=== PATIENT | female | born 1995 | race Caucasian/White ===

== ENCOUNTER 2016-07-28 08:39 | Day surgery (SDC) | payer MEDICAID ==
[2016-07-25 10:46] LABS: HEMATOCRIT 44.1 % (36.0-47.0); HEMOGLOBIN 14.5 g/dL (12.0-15.5); HGB HCT DIFFERENCE -0.6; MEAN CORPUSCULAR HEMOGLOBIN 29.7 pg (27.0-33.4); MEAN CORPUSCULAR HGB CONC 32.9 g/dL (32.0-36.0); MEAN CORPUSCULAR VOLUME 90 fl (80-97); RED BLOOD COUNT 4.88 10^6/uL (3.72-5.28); RED CELL DISTRIBUTION WIDTH 13.9 % (11.5-14.0); WHITE BLOOD COUNT 10.4 10^3/uL (4.0-10.5)
[2016-07-25 10:59] LABS: APPEARANCE,URINE CLEAR; BILIRUBIN,URINE NEGATIVE (NEGATIVE); GLUCOSE, URINE NEGATIVE (NEGATIVE); KETONES,URINE NEGATIVE (NEGATIVE); LEUKOCYTE ESTERASE,URINE NEGATIVE (NEGATIVE); NITRITE,URINE NEGATIVE (NEGATIVE); PROTEIN,URINE NEGATIVE (NEGATIVE); URINE SPECIFIC GRAVITY 1.017; UROBILINOGEN,URINE NEGATIVE mg/dL (<2.0)
[~2016-07-28 08:39] MED LIST: LACTATED RINGERS 1000 ML IV PRN; LIDOCAINE 0.5% INJ-PF (5 MG/ML) 50 ML SDV SUBCUT PRN
[2016-07-28] MEDS ORDERED: ALBUTEROL SULFATE 0.083% NEB 2.5 MG/3 ML AMPUL NEB ONE (09:34)
[2016-07-28] MEDS ORDERED: FAMOTIDINE INJ/PF 20 MG/2 ML SDV IV ONE (09:58)
[2016-07-28] MEDS ORDERED: MIDAZOLAM 2 MG/2 ML INJ ONE ×2 (09:58→10:37)
[2016-07-28] MEDS ORDERED: SCOPOLAMINE HYDROBROMIDE 1.5 MG PATCH.TD72 ONE (10:00)
[2016-07-28] MEDS ORDERED: FENTANYL CITRATE INJ/PF 100 MCG/2 ML AMPUL ONE ×2 (10:36)
[2016-07-28] MEDS ORDERED: LIDOCAINE 2% INJ-PF (100 MG/5 ML) SYRINGE ONE (10:36)
[2016-07-28] MEDS ORDERED: DEXAMETHASONE SOD PHOSPHATE INJ 4 MG/1 ML VIAL ONE (10:37)
[2016-07-28] MEDS ORDERED: ONDANSETRON HCL INJ/PF 4 MG/2 ML SDV ONE (10:37)
[2016-07-28] MEDS ORDERED: PROPOFOL INJ 200 MG/20 ML VIAL IV ONE (10:38)
[2016-07-28] MEDS ORDERED: MORPHINE SULFATE 10 MG/ML INJ ONE (10:38)
[2016-07-28] MEDS ORDERED: PROMETHAZINE HCL INJ 25 MG/1 ML VIAL IV PRN (11:25)
[2016-07-28] MEDS ORDERED: FENTANYL CITRATE INJ/PF 100 MCG/2 ML AMPUL IV PRN (11:25)
[2016-07-28] MEDS ORDERED: DIPHENHYDRAMINE HCL 50 MG/ML VIAL IV PRN (11:25)
[2016-07-28] MEDS ORDERED: MEPERIDINE HCL/PF INJ 25 MG/1 ML DISP.SYRIN IV PRN (11:25)
--- NOTE | 2016-07-28 12:00 | Operative Report ---
Operative Report DATE OF SURGERY: 07/28/16 PREOPERATIVE DIAGNOSIS: Pelvic pain POSTOPERATIVE DIAGNOSIS: Endometriosis OPERATION: Diagnostic laparoscopy with cautery of endometriosis and lysis of adhesions SURGEON: MAYLIN AN SURFACE SUPERVISOR: or staff ANESTHESIA: GA TISSUE REMOVED OR ALTERED: Endometriosis COMPLICATIONS: None ESTIMATED BLOOD LOSS: 50 mL INTRAOPERATIVE FINDINGS: Endometriosis over both ovaries and in the cul-de-sac PROCEDURE: Patient was taken the OR and placed in supine position. Gen. anesthesia was induced. She is placed in the dorsolithotomy position using Grey stirrups. Her abdomen perineum and vagina were prepared and draped in sterile fashion. Her bladder was drained with a red rubber catheter. A sponge stick was placed in the vagina for manipulation of the uterus. An incision was made the umbilicus. Natural umbilical defect was identified and a 5 mm port placed bluntly. Laparoscopy confirmed appropriate placement. The abdomen was insufflated with CO2 gas. View of the pelvis was good. A suprapubic incision was made and a 5 mm port placed under laparoscopic visualization. Pelvis was examined. There were some small anterior adhesions from her previous C- section. Posteriorly there was endometriosis in the cul-de-sac along the uterosacral ligaments and in both ovaries. Ovaries were also tethered to the posterior cul-de-sac. A lateral incision was made. A 5 mm port was placed under laparoscopic visualization. Using the 2 ports the ovaries were elevated up out of the pelvis and the Harmonic scalpel was used to cauterize the endometriosis and release the adhesions from the ovaries to the cul-de-sac. An effort was made to cauterize each individual endometriosis lesion. At the end of the case all instruments removed. The ports were removed under laparoscopic visualization. The umbilical port and scope were removed together. The fascia fascia at the umbilicus was closed with a 2-0 Vicryl stitch and skin at all 3 sites closed with 4-0 undyed Vicryl stitch. She was placed. All instruments removed from the vagina. She is extubated in the OR and taken to recovery in stable condition.
[2016-07-28] MEDS: FENTANYL CITRATE INJ/PF 100 MCG/2 ML AMPUL ONE ×2 (12:09→12:14)
[2016-07-28] MEDS ORDERED: KETOROLAC TROMETHAMINE INJ/PF 30 MG/1 ML SDV IV PRN (12:25)
[2016-07-28] MEDS ORDERED: OXYCODONE-ACETAMINOPHEN 5-325 MG TABLET PO PRN ×2 (12:26→12:27)
[2016-07-28] MEDS ORDERED: IBUPROFEN 800 MG TABLET PO PRN (12:26)
[2016-07-28] MEDS ORDERED: ACETAMINOPHEN 100 ML IV ONE (12:41)
[2016-07-28] MEDS: HYDROMORPHONE HCL INJ/PF 2 MG/ML AMPULE ONE ×2 (12:46→12:56)
[2016-07-28] MEDS ORDERED: KETOROLAC TROMETHAMINE 60 MG/2 ML SDV ONE (12:52)
[2016-07-28] MEDS ORDERED: SUCCINYLCHOLINE CHLORIDE INJ 200 MG/10 ML VIAL ONE (12:52)
[2016-07-28] MEDS ORDERED: GLYCOPYRROLATE INJ 0.4 MG/2 ML VIAL ONE (12:52)
[2016-07-28] MEDS ORDERED: NEOSTIGMINE METHYLSULFATE 10 MG/10 ML VIAL ONE (12:52)
[2016-07-28] MEDS ORDERED: ROCURONIUM BROMIDE INJ 50 MG/5 ML VIAL IV ONE (12:52)
[2016-07-28 15:04] VITALS: BP 107/61
== END 2016-07-28 14:40 | disposition home or self-care (01) ==
LOC: OROUT 08:39
PROVIDERS: ATTEND Obstetrics & Gynecology
PROC: 0U5F4ZZ Destruction of Cul-de-sac, Percutaneous Endoscopic Approach (ICD-10-PCS; 2016-07-28)
PROC: 0U524ZZ Destruction of Bilateral Ovaries, Percutaneous Endoscopic Approach (ICD-10-PCS; principal; 2016-07-28 10:45)
DX: N80.1 Endometriosis of ovary (principal); N80.3 Endometriosis of pelvic peritoneum; M41.9 Scoliosis, unspecified; Z87.891 Personal history of nicotine dependence; Z79.899 Other long term (current) drug therapy; Z88.5 Allergy status to narcotic agent; Z91.040 Latex allergy status
CPT/HCPCS: 36415; 85027; 81005; 81025; 58662; J2250; J3490 ×3; J1100; J1885; J3010; J2001; J1170; J2550; J0330; J2405; J2704; S0028; J0131; 840; J2270

== ENCOUNTER 2016-09-04 11:53 | Emergency (ER) | payer MEDICAID ==
[2016-09-04 12:15] VITALS: BP 122/66
--- NOTE | 2016-09-04 12:18 | ER Document Report ---
ED Medical Screen (RME) - General Stated Complaint: MOUTH/TOOTH PAIN Notes: patient is a 21 year old female p/w tooth pain for 3 days. has had previous pain / infection of this tooth once before. has a dentist but unable to get an appointment. denies fever, chills, odor, abscess, drainage I have greeted and performed a rapid initial assessment of this patient. A comprehensive ED assessment and evaluation of the patient, analysis of test results and completion of the medical decision making process will be conducted by additional ED providers. TRAVEL OUTSIDE OF THE [place] IN LAST 30 DAYS: No - Related Data Allergies/Adverse Reactions: latex [Latex] Allergy (Intermediate, Verified 07/25/16 10:06) Rash, pelvic infection morphine [Morphine] Adverse Reaction (Verified 07/25/16 10:06) Makes pain worse Past Medical History - Social History Family history: Hypertension - Past Medical History Cardiac Medical History: Denies: Hx Coronary Artery Disease, Hx Heart Attack, Hx Hypertension Pulmonary Medical History: Reports: Hx Asthma Denies: Hx Bronchitis, Hx COPD, Hx Pneumonia Neurological Medical History: Reports: Hx Migraine. Denies: Hx Cerebrovascular Accident, Hx Seizures Renal/ Medical History: Reports: Hx Ovarian Cysts, Hx Pelvic Inflammatory Disease GI Medical History: Reports: Hx Gastritis, Hx Gastroesophageal Reflux Disease Musculoskeltal Medical History: Reports Hx Arthritis Skin Medical History: Reports Hx Eczema Psychiatric Medical History: Reports: Hx Anxiety, Hx Depression Past Surgical History: Reports: Hx Section, Hx Cholecystectomy - March 08, 2012, Hx Orthopedic Surgery - Immunizations Immunizations up to date: Yes Hx Diphtheria, Pertussis, Tetanus Vaccination: Yes Physical Exam - Vital signs Vitals: Temp Pulse Resp BP Pulse Ox 98.3 F 83 18 122/66 99 09/04/16 12:14 09/04/16 12:14 09/04/16 12:14 09/04/16 12:14 09/04/16 12:14 Course - Vital Signs Vital signs: Temp Pulse Resp BP Pulse Ox 98.3 F 83 18 122/66 99 09/04/16 12:14 09/04/16 12:14 09/04/16 12:14 09/04/16 12:14 09/04/16 12:14
[2016-09-04] MEDS ORDERED: ACETAMINOPHEN 325 MG TABLET PO ONE (12:19)
== END 2016-09-04 12:50 | disposition left against medical advice (07) ==
LOC: ER 11:53
DX: K08.89 Other specified disorders of teeth and supporting structures (principal); Z91.040 Latex allergy status; Z53.20 Procedure and treatment not carried out because of patient's decision for unspecified reasons
CPT/HCPCS: 99281; J3490

== ENCOUNTER → 2016-10-06 | Outpatient (CLI) | payer MEDICAID ==
[2016-10-06 12:00] LABS: THYROID STIMULATING HORMONE 0.57 uIU/mL (0.47-4.68)
== END ==
LOC: OD 10:22
PROVIDERS: ATTEND Psychiatry & Neurology Psychiatry
DX: F33.2 Major depressive disorder, recurrent severe without psychotic features (principal); Z79.899 Other long term (current) drug therapy
CPT/HCPCS: 36415; 84439; 84443

== ENCOUNTER 2016-10-19 15:05 | Emergency (ER) | payer MEDICAID ==
[2016-10-19] MEDS ORDERED: HYDROCODONE/ACETAMINOPHEN 5-325 MG 6 TAB/DSPK PO PRN (16:03)
--- NOTE | 2016-10-19 16:12 | ER Document Report ---
ED ENT - General Chief Complaint: Redness of Eye Stated Complaint: EYE PAIN Time seen by provider: 16:07 Mode of Arrival: Ambulatory Information source: Patient Notes: 21-year-old female presents to ED for red draining is worse on the left. She is also complaining of jaw pain left lower wisdom tooth area where tooth was pulled about a week and a half ago. The site is bleeding at this moment. She has been smoking. No signs of infection noted at this area. TRAVEL OUTSIDE OF THE [place] IN LAST 30 DAYS: No - HPI Patient complains to provider of: Dental problem, Other - Eye pain and drainage Onset: Other - Dental pain for week is drainage and pain since last night Onset/Duration: Gradual Quality of pain: Other - Left lower jaw throbbing bilateral is kind of burning Severity: Moderate Pain Level: 4 Context: Other - Recent tooth extraction left lower wisdom tooth, significant other diagnosed with pink eye recently. Location of pain: Jaw - Left lower wisdom tooth area, Other - Left eye swollen matted shut this morning right eye starting to drain. Patient is also crying due to pain in her tooth and has been crying and. Associated symptoms: Dental pain - Pain in the left wisdom tooth site where a tooth was pulled about a week and a half ago, Jaw pain, Other - Eyelashes matted , left eye minimally swollen. Similar symptoms previously: Yes Recently seen / treated by doctor: Yes - Related Data Allergies/Adverse Reactions: latex [Latex] Allergy (Intermediate, Verified 10/19/16 15:11) Rash, pelvic infection morphine [Morphine] Adverse Reaction (Verified 10/19/16 15:11) Makes pain worse Past Medical History - General Information source: Patient - Social History Smoking Status: Current Every Day Smoker Cigarette use (# per day): Yes - 7-8 cigarettes a day Chew tobacco use (# tins/day): No Smoking Education Provided: Yes - less than 2 minutes Frequency of alcohol use: None Drug Abuse: None Lives with: Spouse/Significant other Family History: CAD, COPD, CVA, Hyperlipidemia, Hypertension Patient has suicidal ideation: No Patient has homicidal ideation: No - Past Medical History Cardiac Medical History: Reports: None Pulmonary Medical History: Reports: Hx Asthma EENT Medical History: Reports: None Neurological Medical History: Reports: Hx Migraine Endocrine Medical History: Reports: None Renal/ Medical History: Reports: Hx Ovarian Cysts, Hx Pelvic Inflammatory Disease Malignancy Medical History: Reports: None GI Medical History: Reports: Hx Gastritis, Hx Gastroesophageal Reflux Disease Musculoskeltal Medical History: Reports Hx Arthritis Skin Medical History: Reports Hx Eczema Psychiatric Medical History: Reports: Hx Anxiety, Hx Depression Traumatic Medical History: Reports: None Infectious Medical History: Reports: None Past Surgical History: Reports: Hx Section, Hx Cholecystectomy - March 08, 2012, Hx Gynecologic Surgery - Endoscopy for endometriosis, Hx Orthopedic Surgery - Immunizations Immunizations up to date: Yes Hx Diphtheria, Pertussis, Tetanus Vaccination: Yes Review of Systems - Review of Systems Constitutional: No symptoms reported EENT: Eye pain, Eye discharge, Mouth pain Cardiovascular: No symptoms reported Respiratory: No symptoms reported Gastrointestinal: No symptoms reported Genitourinary: No symptoms reported Female Genitourinary: No symptoms reported Musculoskeletal: No symptoms reported Skin: No symptoms reported Hematologic/Lymphatic: No symptoms reported Neurological/Psychological: No symptoms reported -: Yes All other systems reviewed and negative Physical Exam - Vital signs Vitals: Temp Pulse Resp BP Pulse Ox 98.5 F 136 H 17 129/87 H 98 10/19/16 15:15 10/19/16 15:15 10/19/16 15:15 10/19/16 15:15 10/19/16 15:15 Interpretation: Normal - General General appearance: Appears well, Alert - HEENT Head: Normocephalic, Atraumatic Eyes: Normal Conjunctiva: Injected Eyelashes: Matted Pupils: PERRL Fundascopic: Normal Ears: Normal External canal: Normal Tympanic membrane: Normal Sinus: Normal Nasal: Normal Mouth/Lips: Normal Mucous membranes: Normal Teeth diagram: 1 - Some bleeding at the site where a wisdom tooth was removed a week and a half ago. Patient states she has been smoking. No redness or signs of infection. - Respiratory Respiratory status: No respiratory distress Chest status: Nontender Breath sounds: Normal Chest palpation: Normal - Cardiovascular Rhythm: Regular Heart sounds: Normal auscultation Murmur: No - Abdominal Inspection: Normal Distension: No distension Bowel sounds: Normal Tenderness: Nontender Organomegaly: No organomegaly - Back Back: Normal, Nontender - Extremities General upper extremity: Normal inspection, Nontender, Normal color, Normal ROM , Normal temperature General lower extremity: Normal inspection, Nontender, Normal color, Normal ROM , Normal temperature, Normal weight bearing. No: Ginger's sign - Neurological Neuro grossly intact: Yes Cognition: Normal Orientation: AAOx4 [place] Coma Scale Eye Opening: Spontaneous [place] Coma Scale Verbal: Oriented [place] Coma Scale Motor: Obeys Commands Nat[place] Coma Scale Total: 15 Speech: Normal Motor strength normal: LUE, RUE, LLE, RLE Sensory: Normal - Psychological Associated symptoms: Normal affect, Normal mood - Skin Skin Temperature: Warm Skin Moisture: Dry Skin Color: Normal Course - Vital Signs Vital signs: Temp Pulse Resp BP Pulse Ox 97.7 F 93 16 108/56 L 98 10/19/16 16:32 10/19/16 16:32 10/19/16 16:32 10/19/16 16:32 10/19/16 16:32 Discharge - Discharge Clinical Impression: pain at site of previous dental extraction Conjunctivitis Qualifiers: Conjunctivitis type: unspecified Laterality: bilateral Qualified Code(s): H10.9 - Unspecified conjunctivitis Disposition: HOME, SELF-CARE Instructions: Family Physicians / Practices, Dentist Additional Instructions: CONJUNCTIVITIS: You have an infection in your eye, commonly known as "pink eye." Conjunctivitis causes redness, mild discomfort, itching, and mattering on the eyelids. It is very contagious, so you must be careful to wash your hands after touching your face so you don't pass the infection on to others. Conjunctivitis is caused by both viruses and bacteria. It usually responds quickly to treatment with antibiotic drops. These should be placed in the eye as prescribed (usually every three to four hours while you're awake). If you wear contact lenses, don't put them in your eyes until the infection is cleared and you are no longer using the drops (unless your doctor advises you otherwise). Should you develop increasing eye pain, severe swelling, decreased vision, or fail to improve as expected, please return for re-examination. Dry socket, your dental pain is due to the removal of the clot from a previous dental extraction. It is very important that you hold the gauze over the area and apply pressure to reform the clot. If you develop any fevers or swelling in the gums swelling in the jaw you need to follow-up with the oral surgeon who pulled your tooth or with a dentist. EYEDROP USE: Eyedrops are most easily applied by pulling down on the cheek just below the lower eyelid. The lower lid will pop out to form a pouch into which you can drop the medicine. A small brief sting is not unusual, especially if the eye is reddened and irritated already. Use the drops exactly as recommended. You should see the doctor at once if there is a decrease in vision, swelling of the eye, or an increase in discomfort. Oral Narcotic Medication You have been given a prescription for pain control. This medication is a narcotic. It's best taken with food, as nausea can result if taken on an empty stomach. Don't operate machinery or drive within six hours of taking this medication. Do not combine this medicine with alcohol, or with any medication which can cause sedation (such as cold tablets or sleeping pills) unless you get permission from the physician. Narcotics tend to cause constipation. If possible, drink plenty of fluids and eat a diet high in fiber and fruits. Chronic Pain Control Stress, inactivity, and depression make pain more severe regardless of the cause of the pain. Stress and poor physical condition can cause pain such as headaches and backache. Relaxation: Rest in a quiet place with your eyes closed for 20 minutes twice daily. Concentrate on a pleasant image, or simply "feel" your breathing. Clear your mind. Stress management: Deal with your "stressors." Either take action, or eliminate the stressor from your life. Don't let things hang over you. Accept those things you can't change. Nutrition: Eat small, balanced meals -- don't skip, don't overeat. Meals should be high-carbohydrate, low-sugar, low-fat. Exercise: Exercise helps painful conditions and eases stress. Get 30 minutes of moderate exercise, five days a week. Do an activity that does not flare your pain. Precautions: Pain which continues to disrupt daily activities, or which changes in nature, requires a medical evaluation. Pain Clinic referral is available. We do not manage chronic pain in the Emergency Department. We will try to appropriately help you through an acute flare of your chronic painful condition , but for on-going chronic pain that does not improve, you will need to see your private doctor or supervisor painting department. We do not provide repeated medication management of chronic painful conditions. If you wish, we can provide the name of local pain management physicians. Please follow-up with a reconnaissance crewmember in the next 24-48 hours to ensure that sure pink eye has cleared and there are no other infections. FOLLOW-UP CARE: If you have been referred to a physician for follow-up care, call the physician s office for an appointment as you were instructed or within the next two days. If you experience worsening or a significant change in your symptoms, notify the physician immediately or return to the Emergency Department at any time for re-evaluation. Prescriptions: Polymyxin B Sulf/Trimethoprim [Polytrim Eye Drops] 1 drop BTH_EYE Q4HWA #1 bottle Forms: Elevated Blood Pressure, Smoking Cessation Education, Parent Work Note Referrals: BINH TUCKER DO [ACTIVE STAFF] - Follow up tomorrow
[2016-10-19 16:38] VITALS: BP 108/56
[2016-10-19] MEDS ORDERED: POLYMYXIN B SULFATE/TMP OPH SOLN (10 ML/ER DISP) AU SCH (18:00)
== END 2016-10-19 16:38 | disposition home or self-care (01) ==
LOC: ER 15:05
DX: H10.9 Unspecified conjunctivitis (principal); K08.89 Other specified disorders of teeth and supporting structures; H57.12 Ocular pain, left eye; R68.84 Jaw pain; F17.210 Nicotine dependence, cigarettes, uncomplicated
CPT/HCPCS: 99283; J3490

== ENCOUNTER 2016-11-06 13:57 | Emergency (ER) | payer MEDICAID ==
--- NOTE | 2016-11-06 14:52 | ER Document Report ---
ED Medical Screen (RME) - General Chief Complaint: Abdominal Pain Stated Complaint: ABDOMINAL PAIN/URINARY PROBLEMS Notes: 21-year-old with lower abdominal pelvic pain that got really intense 3 days ago. She reports it is similar to the pain she had with endometriosis prior to surgery that was done on 07/28/2016. She also reports burning with urination. LMP was the end of September. I have greeted and performed a rapid initial assessment of this patient. A comprehensive ED assessment and evaluation of the patient, analysis of test results and completion of the medical decision making process will be conducted by additional ED providers. TRAVEL OUTSIDE OF THE [place] IN LAST 30 DAYS: No - Related Data Allergies/Adverse Reactions: latex [Latex] Allergy (Intermediate, Verified 11/06/16 14:26) Rash, pelvic infection morphine [Morphine] Adverse Reaction (Verified 11/06/16 14:26) Makes pain worse Past Medical History - Social History Family history: Hypertension - Past Medical History Cardiac Medical History: Denies: Hx Coronary Artery Disease, Hx Heart Attack, Hx Hypertension Pulmonary Medical History: Reports: Hx Asthma Denies: Hx Bronchitis, Hx COPD, Hx Pneumonia Neurological Medical History: Reports: Hx Migraine. Denies: Hx Cerebrovascular Accident, Hx Seizures Renal/ Medical History: Reports: Hx Ovarian Cysts, Hx Pelvic Inflammatory Disease. Denies: Hx Peritoneal Dialysis GI Medical History: Reports: Hx Gastritis, Hx Gastroesophageal Reflux Disease Musculoskeltal Medical History: Reports Hx Arthritis Skin Medical History: Reports Hx Eczema Psychiatric Medical History: Reports: Hx Anxiety, Hx Depression Past Surgical History: Reports: Hx Section, Hx Cholecystectomy - March 08, 2012, Hx Gynecologic Surgery - Endoscopy for endometriosis, Hx Orthopedic Surgery - Immunizations Immunizations up to date: Yes Hx Diphtheria, Pertussis, Tetanus Vaccination: Yes Physical Exam - Vital signs Vitals: Temp Pulse Resp BP Pulse Ox 99.5 F 91 18 130/67 H 99 11/06/16 14:11/06/16 14:11/06/16 14:11/06/16 14:11/06/16 14:26 Course - Vital Signs Vital signs: Temp Pulse Resp BP Pulse Ox 99.5 F 91 18 130/67 H 99 11/06/16 14:11/06/16 14:11/06/16 14:11/06/16 14:11/06/16 14:26
[2016-11-06 15:30] LABS: ABSOLUTE BASOPHILS # (AUTO) 0.1 10^3/uL (0.0-0.2); ABSOLUTE EOSINOPHILS # (AUTO) 0.2 10^3/uL (0.0-0.6); ABSOLUTE MONOCYTES (AUTO) 0.6 10^3/uL (0.1-1.4); BASOPHILS % (AUTO) 0.6 % (0-2); EOSINOPHILS % (AUTO) 2.4 % (0-6); HEMATOCRIT 43.9 % (36.0-47.0); HEMOGLOBIN 14.9 g/dL (12.0-15.5); HGB HCT DIFFERENCE 0.8; LYMPHOCYTES % (AUTO) 20.5 % (13-45); MEAN CORPUSCULAR HEMOGLOBIN 30.5 pg (27.0-33.4); MEAN CORPUSCULAR VOLUME 90 fl (80-97); MONOCYTES % (AUTO) 6.1 % (3-13); RED BLOOD COUNT 4.89 10^6/uL (3.72-5.28); RED CELL DISTRIBUTION WIDTH 12.9 % (11.5-14.0); SEGMENTED NEUTROPHILS % (AUTO) 70.4 % (42-78); WHITE BLOOD COUNT 9.9 10^3/uL (4.0-10.5)
[2016-11-06 15:39] LABS: APPEARANCE,URINE SLIGHTLY-CLOUDY; BILIRUBIN,URINE NEGATIVE (NEGATIVE); GLUCOSE, URINE NEGATIVE (NEGATIVE); KETONES,URINE NEGATIVE (NEGATIVE); LEUKOCYTE ESTERASE,URINE LARGE (NEGATIVE); NITRITE,URINE NEGATIVE (NEGATIVE); PROTEIN,URINE NEGATIVE (NEGATIVE); URINE SPECIFIC GRAVITY 1.015; UROBILINOGEN,URINE NEGATIVE mg/dL (<2.0)
[2016-11-06 15:53] LABS: ALANINE AMINOTRANSFERASE 21 U/L (9-52); ALBUMIN 4.6 g/dL (3.5-5.0); ALKALINE PHOSPHATASE 61 U/L (38-126); ANION GAP 14 (5-19); ASPARTATE AMINO TRANSFERASE 14 U/L (14-36); BILIRUBIN,DIRECT 0.3 mg/dL (0.0-0.4); BILIRUBIN,TOTAL 0.6 mg/dL (0.2-1.3); BLOOD UREA NITROGEN 6 mg/dL (7-20); CALCIUM 9.6 mg/dL (8.4-10.2); CARBON DIOXIDE 26 mmol/L (22-30); CHLORIDE 105 mmol/L (98-107); CREATININE RESULT 0.76 mg/dL (0.52-1.25); GLUCOSE 75 mg/dL (75-110); POTASSIUM 3.8 mmol/L (3.6-5.0); SODIUM 144.8 mmol/L (137-145)
[2016-11-06] MEDS ORDERED: ONDANSETRON HCL INJ/PF 4 MG/2 ML SDV IV ONE (16:59)
[2016-11-06] MEDS ORDERED: NORMAL SALINE 1000 ML 1,000 ML IV PRN (16:59)
[2016-11-06] MEDS ORDERED: HYDROMORPHONE HCL INJ/PF 2 MG/ML AMPULE IV ONE ×3 (17:01→21:06)
--- NOTE | 2016-11-06 17:08 | ER Document Report ---
ED GI/ - General Chief Complaint: Abdominal Pain Stated Complaint: ABDOMINAL PAIN/URINARY PROBLEMS Time seen by provider: 17:06 Mode of Arrival: Ambulatory Information source: Patient Notes: This is a 21-year-old female with a long history of intermittent abdominal pain that presents with an exacerbation of diffuse abdominal pain. The patient did have a laparoscopy for scar tissue and endometriosis in July of this year ( Dr. Lux), she has had a workup with Dr. La including EGD/colonoscopy and ultimately a cholecystectomy. She presents in significant distress with abdominal pain for the past several days. She does admit to a clear discharge. No known exposure to STD. She states is no possibility of her being (her partner is a female). TRAVEL OUTSIDE OF THE [place] IN LAST 30 DAYS: No - HPI Patient complains to provider of: Abdominal pain Onset: Last week Timing/Duration: Gradual Quality of pain: Dull Severity at maximum: Moderate Location: Other - Diffuse Vaginal bleeding (Compared to normal period): None Sexual history: Active Associated symptoms: denies: Lightheaded, Loss of appetite, Syncope Exacerbated by: Denies Relieved by: Denies Similar symptoms previously: Yes Recently seen / treated by doctor: No - Related Data Allergies/Adverse Reactions: latex [Latex] Allergy (Intermediate, Verified 11/06/16 14:26) Rash, pelvic infection morphine [Morphine] Adverse Reaction (Verified 11/06/16 14:26) Makes pain worse Past Medical History - General Information source: Patient - Social History Smoking Status: Current Every Day Smoker Chew tobacco use (# tins/day): - 15 Frequency of alcohol use: None Drug Abuse: None Lives with: Spouse/Significant other Family History: CAD, COPD, CVA, Hyperlipidemia, Hypertension Patient has suicidal ideation: No Patient has homicidal ideation: No - Past Medical History Cardiac Medical History: Denies: Hx Coronary Artery Disease, Hx Heart Attack, Hx Hypertension Pulmonary Medical History: Reports: Hx Asthma Denies: Hx Bronchitis, Hx COPD, Hx Pneumonia Neurological Medical History: Reports: Hx Migraine. Denies: Hx Cerebrovascular Accident, Hx Seizures Renal/ Medical History: Reports: Hx Ovarian Cysts, Hx Pelvic Inflammatory Disease. Denies: Hx Peritoneal Dialysis GI Medical History: Reports: Hx Gastritis, Hx Gastroesophageal Reflux Disease Musculoskeltal Medical History: Reports Hx Arthritis Skin Medical History: Reports Hx Eczema Psychiatric Medical History: Reports: Hx Anxiety, Hx Depression Past Surgical History: Reports: Hx Section, Hx Cholecystectomy - March 08, 2012, Hx Gynecologic Surgery - Endoscopy for endometriosis, Hx Orthopedic Surgery - Immunizations Immunizations up to date: Yes Hx Diphtheria, Pertussis, Tetanus Vaccination: Yes Review of Systems - Review of Systems Constitutional: denies: Chills, Fever EENT: No symptoms reported Cardiovascular: No symptoms reported Respiratory: No symptoms reported Gastrointestinal: See HPI Genitourinary: No symptoms reported Female Genitourinary: No symptoms reported Musculoskeletal: No symptoms reported Skin: No symptoms reported Hematologic/Lymphatic: No symptoms reported Neurological/Psychological: No symptoms reported Physical Exam - Vital signs Vitals: Temp Pulse Resp BP Pulse Ox 99.5 F 91 18 130/67 H 99 11/06/16 14:26 11/06/16 14:26 11/06/16 14:26 11/06/16 14:11/06/16 14:26 Notes: Physical exam: GENERAL: 21-year-old female, alert and oriented 3, appears in distress. HEAD: Atraumatic, normocephalic. EYES: Pupils equal round and reactive to light, extraocular movements intact, sclera anicteric, conjunctiva are normal. ENT: TMs normal, nares patent, oropharynx clear without exudates. Moist mucous membranes. NECK: Normal range of motion, supple without lymphadenopathy or JVD. LUNGS: Breath sounds clear to auscultation bilaterally and equal. No wheezes rales or rhonchi. HEART: Regular rate and rhythm without murmurs, rubs or gallops. ABDOMEN: Soft, hyperactive bowel sounds. Diffusely tender. No rebound. EXTREMITIES: Normal range of motion, no pitting or edema. No clubbing or cyanosis. NEUROLOGICAL: Cranial nerves II through XII grossly intact. Normal speech, normal gait. PSYCH: Normal mood, normal affect. SKIN: Warm, Dry, normal turgor, no rashes or lesions noted. Course - Re-evaluation Re-evalutation: 11/06/16 21:08 Note: The patient gives a long history of abdominal pain that I think is really related to irritable bowel syndrome. She has had an EGD and colonoscopy and presumably been evaluated for inflammatory bowel. She does not have any history of blood in the stool. She has had her gallbladder out and she has had a laparoscopy for endometriosis. She presented with an exacerbation of pain that she's had in the past. There is no evidence of obstruction or an acute surgical abdomen at this time. She did note that she had an increased vaginal discharge and she is positive for gonorrhea. I have treated her for that, but again, I do not believe this is the source of her pain. I've advised her to take probiotics. I will send her home with some short-term pain medicine and antiemetics. She will follow-up with Dr. Lux (she is going to call in the morning). - Vital Signs Vital signs: Temp Pulse Resp BP Pulse Ox 99.5 F 91 18 130/67 H 99 11/06/16 14:26 11/06/16 14:26 11/06/16 14:26 11/06/16 14:26 11/06/16 14:26 - Laboratory Result Diagrams: 11/06/16 15:08 11/06/16 15:08 Laboratory results interpreted by me: 11/06/16 11/06/16 15:08 15:08 BUN 6 L Ur Leukocyte Esterase LARGE H - Diagnostic Test Radiology reviewed: Image reviewed, Reports reviewed - CT the abdomen shows no acute abdominal surgical issues Discharge - Discharge Clinical Impression: Cervicitis, abdominal pain Condition: Stable Disposition: HOME, SELF-CARE Instructions: Gonorrhea ([facility]), Cervicitis ([facility]), Irritable Bowel Syndrome ([facility]) Additional Instructions: Recommendations: Follow-up with the [facility] clinic (Dr. Lux): Call the office tomorrow morning. Take the pain medicine is required. Take the nausea medicine as needed. As we discussed, and like you to start taking probiotics to see if this helps her abdominal complaints. Ultimately, you may need to be evaluated again by GI. Prescriptions: Oxycodone HCl/Acetaminophen [Percocet 5-325 mg Tablet] 1 - 2 tab PO ASDIR PRN # 15 tablet PRN Reason: Promethazine HCl [Phenergan 25 mg Tablet] 25 mg PO Q6H PRN #15 tablet PRN Reason:
[2016-11-06 19:38] LABS: CHLAM PCR NOT DETECTED (NOT DETECT)
[2016-11-06] MEDS ORDERED: CEFTRIAXONE INJ 250 MG VIAL IM ONE (20:29)
[2016-11-06] MEDS ORDERED: AZITHROMYCIN 1 GM SUSP PACKET PO ONE (20:29)
[2016-11-06] MEDS ORDERED: PROMETHAZINE HCL 25 MG TABLET PO ONE (21:05)
[2016-11-06] MEDS ORDERED: LIDOCAINE 1% INJ-PF (10 MG/ML) 30 ML SDV ONE (21:22)
[2016-11-06 21:36] VITALS: BP 121/65
== END 2016-11-06 21:35 | disposition home or self-care (01) ==
LOC: ER 13:57
DX: R10.84 Generalized abdominal pain (principal); A54.03 Gonococcal cervicitis, unspecified; J45.909 Unspecified asthma, uncomplicated; F17.200 Nicotine dependence, unspecified, uncomplicated; Z90.49 Acquired absence of other specified parts of digestive tract; Z91.040 Latex allergy status; Z87.42 Personal history of other diseases of the female genital tract
CPT/HCPCS: 96376; 99284; 96372; 96361; 96374; 96375; 36415; 87210; 84703; 85025; 80053; 81001; 87491; 87591; 74177; J3490 ×2; Q0144; J1170; J2405; J7030; J0696

== ENCOUNTER 2016-12-09 14:14 | Emergency (ER) | payer MEDICAID ==
[2016-12-09] MEDS ORDERED: ONDANSETRON 4 MG TAB.RAPDIS PO ONE (15:23)
--- NOTE | 2016-12-09 16:05 | RADIOLOGY REPORT (SQ) ---
EXAM DESCRIPTION: CT HEAD WITHOUT COMPLETED DATE/TIME: 12/09/2016 3:50 pm REASON FOR STUDY: hit head, near syncope COMPARISON: July 2010 TECHNIQUE: Axial images acquired through the brain without intravenous contrast. Images reviewed wi th bone, brain and subdural windows. Images stored on PACS. All CT scanners at this facility use dose modulation, iterative reconstruction, and/or weight based d osing when appropriate to reduce radiation dose to as low as reasonably achievable (ALARA). [facility]: Dose Right [facility]: CareDose [facility]: Dose Right [facility]: Teradose 4D [facility]: [place] J&B RADIATION DOSE: 64.61 mGy. LIMITATIONS: None. FINDINGS: VENTRICLES: Normal size and contour. CEREBRUM: No masses. No hemorrhage. No midline shift. Normal galvin/white matter differentiation. N o evidence for acute infarction. CEREBELLUM: No masses. No hemorrhage. No alteration of density. No evidence for acute infarction. EXTRAAXIAL SPACES: No fluid collections. No masses. ORBITS AND GLOBE: No intra- or extraconal masses. Normal contour of globe without masses. CALVARIUM: No fracture. PARANASAL SINUSES: Mucosal thickening is identified in the right maxillary antra. SOFT TISSUES: No mass or hematoma. OTHER: No other significant finding. IMPRESSION: NORMAL BRAIN CT WITHOUT CONTRAST. TECHNICAL DOCUMENTATION: JOB ID: [id number] Quality ID # [id number]: Final reports with documentation of one or more dose reduction techniques (e.g., Au tomated exposure control, adjustment of the mA and/or kV according to patient size, use of iterative reconstruction technique) 2010 [employer]- All Rights Reserved
[2016-12-09] MEDS ORDERED: ONDANSETRON ODT 4 MG TAB (6 TAB/DSPK) PO PRN (16:31)
--- NOTE | 2016-12-09 16:33 | ER Document Report ---
ED Head/Face/Scalp Injury - General TRAVEL OUTSIDE OF THE [place] IN LAST 30 DAYS: Yes - HPI Patient complains to provider of: Injury, Pain Injury to: Head Occurred: Other - Refer to HPI notes - General Chief Complaint: Head Injury Stated Complaint: HEAD INJURY Time Seen by Provider: 12/09/16 15:16 Notes: Patient is a 21 year old female presenting to the Emergency department for head pain related to a head injury. Patient "slammed" the back of her head into a door frame yesterday. Patient complains of headache, blurred vision, nausea and vomiting x5. Patient states she has lots of pain behind her eyes bilaterally. Patient hit the occipital part of her head on the door frame. Patient was unsteady and dizzy after hitting her head and her friend "caught" her right after it happened. Patient states her dizziness is still present today. Patient denies any LOC, numbness/tingling, weakness, shortness of breath, or chest pain. (BILLY SILVA) - Related Data Allergies/Adverse Reactions: latex [Latex] Allergy (Intermediate, Verified 12/09/16 15:13) Rash, pelvic infection morphine [Morphine] Adverse Reaction (Verified 12/09/16 15:13) Makes pain worse Past Medical History - General Information source: Patient - Social History Smoking Status: Never Smoker Cigarette use (# per day): No Chew tobacco use (# tins/day): No Frequency of alcohol use: None Drug Abuse: None Family History: CAD, COPD, CVA, Hyperlipidemia, Hypertension Patient has suicidal ideation: No Patient has homicidal ideation: No Pulmonary Medical History: Reports: Hx Asthma Neurological Medical History: Reports: Hx Migraine Renal/ Medical History: Reports: Hx Ovarian Cysts, Hx Pelvic Inflammatory Disease GI Medical History: Reports: Hx Gastritis, Hx Gastroesophageal Reflux Disease Musculoskeltal Medical History: Reports Hx Arthritis Skin Medical History: Reports Hx Eczema Psychiatric Medical History: Reports: Hx Anxiety, Hx Depression Past Surgical History: Reports: Hx Section, Hx Cholecystectomy - March 08, 2012, Hx Gynecologic Surgery - Endoscopy for endometriosis, Hx Orthopedic Surgery - Immunizations Immunizations up to date: Yes Hx Diphtheria, Pertussis, Tetanus Vaccination: Yes Review of Systems - Review of Systems Constitutional: No symptoms reported EENT: See HPI, Blurred vision Cardiovascular: See HPI, Dizziness Respiratory: No symptoms reported Gastrointestinal: See HPI, Nausea, Vomiting Genitourinary: No symptoms reported Female Genitourinary: No symptoms reported Musculoskeletal: No symptoms reported Skin: No symptoms reported Hematologic/Lymphatic: No symptoms reported Neurological/Psychological: See HPI, Headaches -: Yes All other systems reviewed and negative Physical Exam - Vital signs Vitals: Temp Pulse Resp BP Pulse Ox 98.7 F 91 18 116/66 99 12/09/16 14:53 12/09/16 14:53 12/09/16 14:53 12/09/16 14:53 12/09/16 14:53 - Notes Notes: GENERAL: Alert, interacts well. No acute distress. HEAD: Normocephalic, atraumatic. EYES: Pupils equal, round, and reactive to light. Extraocular movements intact. ENT: Oral mucosa moist, tongue midline. [Nares patent, no nasal septal hematoma , TM's intacts.] NECK: Full range of motion. Supple. Trachea midline. LUNGS: Clear to auscultation bilaterally, no wheezes, rales, or rhonchi. No respiratory distress. HEART: Regular rate and rhythm. No murmurs, gallops, or rubs. ABDOMEN: Soft, non-tender. Non-distended. Bowel sounds present in all 4 quadrants. EXTREMITIES: Moves all 4 extremities spontaneously. No edema, radial and dorsalis pedis pulses 2/4 bilaterally. No cyanosis. NEUROLOGICAL: Alert and oriented x3. Normal speech. [cranial nerves II through XII grossly intact]. Biceps and patellar DTRs 2+ bilaterally. PSYCH: Normal affect, normal mood. SKIN: Warm, dry, normal turgor. No rashes or lesions noted. (BILLY SILVA) Course - Re-evaluation Re-evalutation: 12/09/16 16:34 CT scan of the head negative for acute bleeding. Examination consistent with concussion. Given concussion precautions. Discharged under care of girlfriend. (AVINASH SANTIAGO) - Vital Signs Vital signs: Temp Pulse Resp BP Pulse Ox 98.3 F 103 H 18 120/77 99 12/09/16 16:32 12/09/16 16:32 12/09/16 14:53 12/09/16 16:32 12/09/16 16:32 Discharge - Discharge Clinical Impression: Concussion Qualifiers: Encounter type: initial encounter Loss of consciousness presence/duration: without LOC Qualified Code(s): S06.0X0A - Concussion without loss of consciousness, initial encounter Condition: Stable Disposition: HOME, SELF-CARE Instructions: Post-Concussion Syndrome ([facility]) Prescriptions: Ondansetron [Zofran Odt 4 mg Tablet] 1 - 2 tab PO Q4H PRN #15 tab.rapdis PRN Reason: For Nausea/Vomiting Forms: Return to Work Scribe Attestation: 12/09/16 20:51 I personally performed the services described in the documentation, reviewed and edited the documentation which was dictated to the scribe in my presence, and it accurately records my words and actions. (AVINASH SANTIAGO) Scribe Documentation - Scribe Written by Kim:: Kim Alvarado, 12/09/16 17:30 acting as scribe for :: Pily
[2016-12-09 16:59] VITALS: BP 120/77
== END 2016-12-09 16:50 | disposition home or self-care (01) ==
LOC: ER 14:14
DX: S06.0X0A Concussion without loss of consciousness, initial encounter (principal); W22.09XA Striking against other stationary object, initial encounter; R51 Headache; H53.8 Other visual disturbances; R11.2 Nausea with vomiting, unspecified; R42 Dizziness and giddiness; Z91.040 Latex allergy status; J45.909 Unspecified asthma, uncomplicated
CPT/HCPCS: 99283; 70450; S0119

== ENCOUNTER 2016-12-26 22:00 | Emergency (ER) | payer MEDICAID ==
[2016-12-26 22:43] VITALS: BP 101/50
== END 2016-12-27 00:08 | disposition left against medical advice (07) ==
LOC: ER 22:00
DX: Z53.9 Procedure and treatment not carried out, unspecified reason (principal); R51 Headache

== ENCOUNTER → 2017-01-26 | Outpatient (CLI) | payer MEDICAID ==
[2017-01-26 12:44] LABS: HEMATOCRIT 45.7 % (36.0-47.0); HEMOGLOBIN 14.9 g/dL (12.0-15.5); MEAN CORPUSCULAR HGB CONC 32.6 g/dL (32.0-36.0); MEAN CORPUSCULAR VOLUME 92 fl (80-97); RED BLOOD COUNT 4.95 10^6/uL (3.72-5.28); RED CELL DISTRIBUTION WIDTH 13.2 % (11.5-14.0); WHITE BLOOD COUNT 8.1 10^3/uL (4.0-10.5)
[2017-01-26 13:12] LABS: ALANINE AMINOTRANSFERASE 28 U/L (9-52); ALKALINE PHOSPHATASE 63 U/L (38-126); AMYLASE 59 U/L (30-110); ANION GAP 15 (5-19); ASPARTATE AMINO TRANSFERASE 15 U/L (14-36); BILIRUBIN,DIRECT 0.3 mg/dL (0.0-0.4); BILIRUBIN,TOTAL 1.1 mg/dL (0.2-1.3); BLOOD UREA NITROGEN 13 mg/dL (7-20); CALCIUM 9.7 mg/dL (8.4-10.2); CARBON DIOXIDE 20 mmol/L (22-30); CHLORIDE 107 mmol/L (98-107); CREATININE RESULT 0.74 mg/dL (0.52-1.25); GLUCOSE 73 mg/dL (75-110); LIPASE 29.3 U/L (23-300); POTASSIUM 4.1 mmol/L (3.6-5.0); SODIUM 142.3 mmol/L (137-145)
[2017-01-26 13:38] LABS: THYROID STIMULATING HORMONE 0.75 uIU/mL (0.47-4.68)
== END ==
LOC: OD 12:01
PROVIDERS: ATTEND Physician Assistant Surgical
DX: R11.2 Nausea with vomiting, unspecified (principal); R63.0 Anorexia; R68.81 Early satiety; R19.4 Change in bowel habit; R63.4 Abnormal weight loss
CPT/HCPCS: 36415; 80053; 82150; 83690; 84439; 84443; 85027

== ENCOUNTER 2017-03-19 19:44 | Emergency (ER) | payer MEDICAID ==
[2017-03-19] MEDS ORDERED: PENICILLIN V POTASSIUM 250 MG TABLET PO ONE (20:41)
--- NOTE | 2017-03-19 20:42 | ER Document Report ---
ED Oral Problem - General Mode of Arrival: Ambulatory Information source: Patient TRAVEL OUTSIDE OF THE [place] IN LAST 30 DAYS: No - General Chief Complaint: Toothache Stated Complaint: TOOTH PAIN AND VOMITING Time Seen by Provider: 03/19/17 20:25 Notes: Patient is a 21-year-old female who presents to the emergency department today with complaints of dental pain. Patient states she has several broken teeth. Patient states "she cannot find a dentist to pull all her teeth because of her age". Patient has frequent tooth infections. Patient states she has found a dentist but she cannot get in for two weeks. (CATY FULTON) - Related Data Allergies/Adverse Reactions: latex [Latex] Allergy (Intermediate, Verified 12/09/16 15:13) Rash, pelvic infection morphine [Morphine] Adverse Reaction (Verified 12/09/16 15:13) Makes pain worse Past Medical History - General Information source: Patient, [facility] Records - Social History Smoking Status: Current Every Day Smoker Cigarette use (# per day): Yes Frequency of alcohol use: None Drug Abuse: None Lives with: Family Family History: CAD, COPD, CVA, Hyperlipidemia, Hypertension Patient has suicidal ideation: No Patient has homicidal ideation: No Pulmonary Medical History: Reports: Hx Asthma Neurological Medical History: Reports: Hx Migraine Renal/ Medical History: Reports: Hx Ovarian Cysts, Hx Pelvic Inflammatory Disease GI Medical History: Reports: Hx Gastritis, Hx Gastroesophageal Reflux Disease Musculoskeltal Medical History: Reports Hx Arthritis Skin Medical History: Reports Hx Eczema Psychiatric Medical History: Reports: Hx Anxiety, Hx Depression Past Surgical History: Reports: Hx Section, Hx Cholecystectomy - March 08, 2012, Hx Gynecologic Surgery - Endoscopy for endometriosis, Hx Orthopedic Surgery - Immunizations Immunizations up to date: Yes Hx Diphtheria, Pertussis, Tetanus Vaccination: Yes Review of Systems - Review of Systems Constitutional: No symptoms reported EENT: See HPI, Mouth pain, Dental problem Cardiovascular: No symptoms reported Respiratory: No symptoms reported Gastrointestinal: No symptoms reported Genitourinary: No symptoms reported Female Genitourinary: No symptoms reported Musculoskeletal: No symptoms reported Skin: No symptoms reported Hematologic/Lymphatic: No symptoms reported Neurological/Psychological: No symptoms reported -: Yes All other systems reviewed and negative Physical Exam - Vital signs Vitals: Temp Pulse Resp BP Pulse Ox 99.6 F 93 17 127/75 H 100 03/19/17 19:55 03/19/17 19:55 03/19/17 19:55 03/19/17 19:55 03/19/17 19:55 - Notes Notes: Physical Exam: General: Alert, appears well. HEENT: Normocephalic. Atraumatic. PERRLA. Extraocular movements intact. Oropharynx clear. Generalized dental decay. Neck: Supple. Respiratory: No respiratory distress. Abdominal: Normal Inspection. No distension. Extremities: Moves all four extremities. Neurological: Cranial nerves II-XII grossly intact bilaterally. Normal cognition. AAOx4. Normal speech. Psychological: Normal affect. Normal Mood. Skin: Warm. Dry. Normal color. (CATY FULTON) Course - Re-evaluation Re-evalutation: 03/19/17 20:43 Patient presents emerged department odontalgia. She has been seen in the emergency department on numerous visits for multiple dental decay issues as well multiple chronic pain issues said that 1 of her teeth are bothering her and the dentist "will not take all of her teeth out". Says she can get an appointment until 2 weeks from now. On examination well-appearing nontoxic afebrile no facial swelling she has got some dental decay throughout but no associated periapical abscess swelling trismus stridor or drooling trachea is midline neck is supple lungs are clear she can be discharged on [facility] given instruction list on dentist in the area to call around to get a sooner appointment and discussed reasons for ED return sooner (AIDEN LADD) - Vital Signs Vital signs: Temp Pulse Resp BP Pulse Ox 99.1 F 93 18 120/74 100 03/19/17 21:14 03/19/17 21:14 03/19/17 21:14 03/19/17 21:14 03/19/17 21:14 Discharge - Discharge Clinical Impression: Dental caries Condition: Stable Disposition: HOME, SELF-CARE Instructions: Toothache ([facility]) Additional Instructions: Toothache Your pain is due to dental decay. The tooth must be repaired in order for you to feel better. You will, therefore, be referred to a dentist. Severe swelling or drainage around a tooth usually means a deep dental abscess. This also requires evaluation and treatment by the dentist, but antibiotics may be prescribed while awaiting dental treatment. You should be rechecked immediately if you develop major swelling of the face, increasing pain, a lump in the jaw or gums, headache, or fever. Prescriptions: Penicillin V Potassium [Penicillin Vk 250 mg Tablet] 250 mg PO Q6 #40 tablet Scribe Attestation: 03/19/17 20:43 I personally performed the services described in the documentation reviewed the documentation recorded by my scribe in my presence and it accurately and completely records my words and actions (AIDEN LADD) Marcusibe Documentation - Scribe Written by Kim:: Kim Pandya, 03/20/2017 0129 acting as scribe for :: Dmitri
[2017-03-19 21:16] VITALS: BP 120/74
== END 2017-03-19 21:16 | disposition home or self-care (01) ==
LOC: ER 19:44
DX: K02.9 Dental caries, unspecified (principal); K08.89 Other specified disorders of teeth and supporting structures; F17.210 Nicotine dependence, cigarettes, uncomplicated
CPT/HCPCS: 99282

== ENCOUNTER 2017-06-30 11:52 | Emergency (ER) | payer MEDICAID ==
[2017-06-30] MEDS ORDERED: ONDANSETRON 4 MG TAB.RAPDIS PO ONE (12:34)
--- NOTE | 2017-06-30 12:35 | ER Document Report ---
ED Medical Screen (RME) - General TRAVEL OUTSIDE OF THE [place] IN LAST 30 DAYS: No <GUSTAVO CHEN - Last Filed: 06/30/17 12:34> - General Mode of Arrival: Ambulatory Information source: Patient - HPI Patient complains to provider of: Diarrhea and pelvic pain on the right Onset: Other - Diarrhea has been going on for months. Patient has seen GI and got a colonoscopy and endoscopy and was diagnosed with gastritis as well as colon polyps. Pain is also chronic although worse today. Patient did have endometrial surgery July 2015. Associated Symptoms: Nausea Exacerbated by: Movement, Food Relieved by: Denies Similar symptoms previously: Yes Recently seen / treated by doctor: No - Related Data Smoking: Less than 1 pack/day Frequency of alcohol use: None Drug Abuse: None <MARTHA THOMASON - Last Filed: 06/30/17 18:03> - General Chief Complaint: Abdominal Pain Stated Complaint: ABDOMINAL PAIN,DIARRHEA,NAUSEA Time Seen by Provider: 06/30/17 12:30 Notes: 21-year-old female patient complains of 2-3 days of constant sharp cramps in the lower abdomen pelvic region. She reports really bad diarrhea starting this morning and cannot understand how she can continue to have so many episodes with nothing in her. She has had nausea vomiting yesterday and dry heaves today. No fevers. She reports she has had intermittent pelvic pain since September of this year, but it has become constant the past 2-3 days. She states it feels like it has her ovaries causing her discomfort. LMP ended on 2016. (GUSTAVO CHEN) - Related Data Allergies/Adverse Reactions: latex [Latex] Allergy (Intermediate, Verified 06/30/17 12:25) Rash, pelvic infection morphine [Morphine] Adverse Reaction (Verified 06/30/17 12:25) Makes pain worse Past Medical History - Social History Chew tobacco use (# tins/day): No Frequency of alcohol use: None Drug Abuse: None Family history: Hypertension - Past Medical History Cardiac Medical History: Denies: Hx Coronary Artery Disease, Hx Heart Attack, Hx Hypertension Pulmonary Medical History: Reports: Hx Asthma Denies: Hx Bronchitis, Hx COPD, Hx Pneumonia Neurological Medical History: Reports: Hx Migraine. Denies: Hx Cerebrovascular Accident, Hx Seizures Renal/ Medical History: Reports: Hx Ovarian Cysts, Hx Pelvic Inflammatory Disease. Denies: Hx Peritoneal Dialysis GI Medical History: Reports: Hx Gastritis, Hx Gastroesophageal Reflux Disease Musculoskeltal Medical History: Reports Hx Arthritis Skin Medical History: Reports Hx Eczema Psychiatric Medical History: Reports: Hx Anxiety, Hx Depression Past Surgical History: Reports: Hx Section, Hx Cholecystectomy - March 08, 2012, Hx Gynecologic Surgery - Endoscopy for endometriosis, Hx Orthopedic Surgery - Immunizations Immunizations up to date: Yes Hx Diphtheria, Pertussis, Tetanus Vaccination: Yes <GUSTAVO CHEN - Last Filed: 06/30/17 12:34> - General Information source: Patient - Social History Chew tobacco use (# tins/day): No Frequency of alcohol use: None Drug Abuse: None Lives with: Family Family history: Hypertension <MARTHA THOMASON - Last Filed: 06/30/17 18:03> - Vital signs Vitals: Temp Pulse Resp BP Pulse Ox 97.9 F 77 16 126/73 H 99 06/30/17 12:01 06/30/17 12:01 06/30/17 12:01 06/30/17 12:01 06/30/17 12:01 Course - Laboratory Result Diagrams: 06/30/17 12:50 06/30/17 12:50 <MARTHA THOMASON - Last Filed: 06/30/17 18:03> - Vital Signs Vital signs: Temp Pulse Resp BP Pulse Ox 97.9 F 77 16 126/73 H 99 06/30/17 12:01 06/30/17 12:01 06/30/17 12:01 06/30/17 12:01 06/30/17 12:01 - Laboratory Laboratory results interpreted by me: 06/30/17 06/30/17 12:50 12:50 Hgb 16.3 H Hct 47.4 H Chloride 109 H
[2017-06-30 13:20] LABS: ABSOLUTE BASOPHILS # (AUTO) 0.1 10^3/uL (0.0-0.2); ABSOLUTE EOSINOPHILS # (AUTO) 0.2 10^3/uL (0.0-0.6); ABSOLUTE MONOCYTES (AUTO) 0.5 10^3/uL (0.1-1.4); ABSOLUTE NEUT (AUTO) 4.1 10^3/uL (1.7-8.2); BASOPHILS % (AUTO) 0.7 % (0-2); EOSINOPHILS % (AUTO) 2.5 % (0-6); HEMATOCRIT 47.4 % (36.0-47.0); HEMOGLOBIN 16.3 g/dL (12.0-15.5); HGB HCT DIFFERENCE 1.5; LYMPHOCYTES % (AUTO) 37.9 % (13-45); MEAN CORPUSCULAR HEMOGLOBIN 31.4 pg (27.0-33.4); MEAN CORPUSCULAR HGB CONC 34.4 g/dL (32.0-36.0); MEAN CORPUSCULAR VOLUME 91 fl (80-97); MONOCYTES % (AUTO) 6.8 % (3-13); SEGMENTED NEUTROPHILS % (AUTO) 52.1 % (42-78); WHITE BLOOD COUNT 7.9 10^3/uL (4.0-10.5)
[2017-06-30 13:26] LABS: APPEARANCE,URINE SLIGHTLY-CLOUDY; BILIRUBIN,URINE NEGATIVE (NEGATIVE); GLUCOSE, URINE NEGATIVE (NEGATIVE); KETONES,URINE NEGATIVE (NEGATIVE); LEUKOCYTE ESTERASE,URINE NEGATIVE (NEGATIVE); NITRITE,URINE NEGATIVE (NEGATIVE); PROTEIN,URINE NEGATIVE (NEGATIVE); URINE SPECIFIC GRAVITY 1.023; UROBILINOGEN,URINE NEGATIVE mg/dL (<2.0)
[2017-06-30 13:39] LABS: ALANINE AMINOTRANSFERASE 29 U/L (9-52); ALBUMIN 4.9 g/dL (3.5-5.0); ALKALINE PHOSPHATASE 62 U/L (38-126); ANION GAP 13 (5-19); ASPARTATE AMINO TRANSFERASE 17 U/L (14-36); BILIRUBIN,DIRECT 0.1 mg/dL (0.0-0.4); BILIRUBIN,TOTAL 0.6 mg/dL (0.2-1.3); BLOOD UREA NITROGEN 7 mg/dL (7-20); CALCIUM 9.8 mg/dL (8.4-10.2); CARBON DIOXIDE 22 mmol/L (22-30); CHLORIDE 109 mmol/L (98-107); CREATININE RESULT 0.68 mg/dL (0.52-1.25); GLUCOSE 81 mg/dL (75-110); POTASSIUM 4.2 mmol/L (3.6-5.0); TOTAL PROTEIN 7.5 g/dL (6.3-8.2)
[2017-06-30] MEDS ORDERED: DIPHENOXYLATE HCL/ATROP SULF 2.5-0.025 MG TABLET PO ONE (17:52)
[2017-06-30] MEDS ORDERED: IBUPROFEN 600 MG TABLET PO ONE (17:59)
--- NOTE | 2017-06-30 18:04 | ER Document Report ---
ED General - General Chief Complaint: Abdominal Pain Stated Complaint: ABDOMINAL PAIN,DIARRHEA,NAUSEA Time Seen by Provider: 06/30/17 12:30 Mode of Arrival: Ambulatory Information source: Patient TRAVEL OUTSIDE OF THE [place] IN LAST 30 DAYS: No - HPI Patient complains to provider of: diarrhea and pelvic pain Onset: Other - Patient states she has had diarrhea for months now. She has seen a occup therapist and had a colonoscopy and endoscopy and was diagnosed with colon polyps and gastritis. Patient also has a history of pelvic pain although it has gotten worse in the last few days. She states she was diagnosed with endometriosis and did have surgery for this July 2015. Severity: Moderate Pain Level: 4 Associated symptoms: Nausea Exacerbated by: Movement Relieved by: Denies Similar symptoms previously: Yes Recently seen / treated by doctor: No - Related Data Allergies/Adverse Reactions: latex [Latex] Allergy (Intermediate, Verified 06/30/17 12:25) Rash, pelvic infection morphine [Morphine] Adverse Reaction (Verified 06/30/17 12:25) Makes pain worse Past Medical History - General Information source: Patient - Social History Smoking Status: Current Every Day Smoker Chew tobacco use (# tins/day): No Frequency of alcohol use: None Drug Abuse: None Lives with: Family Family History: CAD, COPD, CVA, Hyperlipidemia, Hypertension Patient has suicidal ideation: No Patient has homicidal ideation: No - Medical History Notes: Patient is 2 para 1 with 1 miscarriage - Past Medical History Cardiac Medical History: Denies: Hx Coronary Artery Disease, Hx Heart Attack, Hx Hypertension Pulmonary Medical History: Reports: Hx Asthma Denies: Hx Bronchitis, Hx COPD, Hx Pneumonia EENT Medical History: Reports: None Neurological Medical History: Reports: Hx Migraine. Denies: Hx Cerebrovascular Accident, Hx Seizures Endocrine Medical History: Reports: None Renal/ Medical History: Reports: Hx Ovarian Cysts, Hx Pelvic Inflammatory Disease. Denies: Hx Peritoneal Dialysis Malignancy Medical History: Reports: None GI Medical History: Reports: Hx Gastritis, Hx Gastroesophageal Reflux Disease Musculoskeltal Medical History: Reports Hx Arthritis Skin Medical History: Reports Hx Eczema Psychiatric Medical History: Reports: Hx Anxiety, Hx Depression Traumatic Medical History: Reports: None Infectious Medical History: Reports: None Past Surgical History: Reports: Hx Section, Hx Cholecystectomy - March 08, 2012, Hx Gynecologic Surgery - Endoscopy for endometriosis, Hx Orthopedic Surgery - Immunizations Immunizations up to date: Yes Hx Diphtheria, Pertussis, Tetanus Vaccination: Yes History of Influenza Vaccine for 04/2017 - 09/2017 Season: No Review of Systems - Review of Systems Constitutional: No symptoms reported EENT: No symptoms reported Cardiovascular: No symptoms reported Respiratory: No symptoms reported Gastrointestinal: See HPI Genitourinary: See HPI Female Genitourinary: Last menstrual period - June 24, 2017 Skin: No symptoms reported Hematologic/Lymphatic: No symptoms reported Neurological/Psychological: No symptoms reported Physical Exam - Vital signs Vitals: Temp Pulse Resp BP Pulse Ox 97.9 F 77 16 126/73 H 99 06/30/17 12:01 06/30/17 12:01 06/30/17 12:01 06/30/17 12:01 06/30/17 12:01 - Notes Notes: PHYSICAL EXAMINATION: GENERAL: Extremely thin 21-year-old female laying in bed in no apparent distress. HEAD: Atraumatic, normocephalic. EYES: Pupils equal round and reactive to light, extraocular movements intact, conjunctiva are normal. ENT: Nares patent, oropharynx clear without exudates. Moist mucous membranes. Poor dentition NECK: Normal range of motion, supple without lymphadenopathy LUNGS: Breath sounds clear to auscultation bilaterally and equal. No wheezes rales or rhonchi. HEART: Regular rate and rhythm without murmurs ABDOMEN: Soft, pain in the right suprapubic area worse with palpation nondistended abdomen. No guarding, no rebound. No masses appreciated. Female : Patient refused Musculoskeletal: Normal range of motion, no pitting or edema. No cyanosis. NEUROLOGICAL: Cranial nerves grossly intact. Normal speech, normal gait. Normal sensory, motor exams PSYCH: Normal mood, normal affect. SKIN: Warm, Dry, normal turgor, no rashes or lesions noted. Course - Re-evaluation Re-evalutation: 06/30/17 18:08 I went back in the room to speak to the patient. She is frustrated teary-eyed and she wants to go home. I informed her that I feel it is necessary to do an ultrasound to make sure her right ovary is okay. I also told the patient that her appendix was in that right lower quadrant if she started with fevers, increased pain, inability to eat or any other concerns to please return to the emergency department immediately. States that she has not brought any money to the emergency department and her daughter is cranky and hungry. I did offer to feed her daughter however patient declined. he stated she would follow-up with the primary medical doctor in the morning and requested discharge papers as well as a work note. I did tell that patient that leaving without a completed workup could result in a bad outcome including disability or . Told the patient she could return to the emergency department any time to continue with her evaluation and treatment. 06/30/17 23:00 - Vital Signs Vital signs: Temp Pulse Resp BP Pulse Ox 98.1 F 95 18 129/115 H 97 06/30/17 18:22 06/30/17 18:22 06/30/17 18:22 06/30/17 18:22 06/30/17 18:22 - Laboratory Result Diagrams: 06/30/17 12:50 06/30/17 12:50 Laboratory results interpreted by me: 06/30/17 06/30/17 12:50 12:50 Hgb 16.3 H Hct 47.4 H Chloride 109 H Discharge - Discharge Clinical Impression: Pelvic pain, Diarrhea Disposition: AGAINST MEDICAL ADVICE Additional Instructions: Please return to the emergency department any time for further evaluation. Forms: Return to Work Referrals: [facility] [Provider Group] - Follow up as needed
[2017-06-30 18:23] VITALS: BP 129/115
== END 2017-06-30 18:23 | disposition left against medical advice (07) ==
LOC: ER 11:52
DX: R10.2 Pelvic and perineal pain (principal); R19.7 Diarrhea, unspecified; R10.9 Unspecified abdominal pain; R11.0 Nausea; F17.200 Nicotine dependence, unspecified, uncomplicated; Z91.040 Latex allergy status; Z88.6 Allergy status to analgesic agent
CPT/HCPCS: 99284; 36415; 87045; 89055; 87205; 84703; 85025; 80053; 81001; 87493; J3490 ×2; S0119

== ENCOUNTER 2017-07-20 23:35 | Emergency (ER) | payer MEDICAID ==
[2017-07-21] MEDS ORDERED: HYDROMORPHONE HCL INJ/PF 2 MG/ML AMPULE IV ONE ×2 (00:11→01:19)
--- NOTE | 2017-07-21 00:15 | ER Document Report ---
ED General - General Chief Complaint: RLQ pain Stated Complaint: RIGHT LOWER QUADRANT PAIN Time Seen by Provider: 07/21/17 00:03 Notes: She is a 22-year-old female presents with complaints of pain in the right lower pelvis started during sex. No abnormal vaginal bleeding or discharge. Pain was last night but is continued to worsen throughout the day today. No fevers. No vomiting. No diarrhea. She does have history of endometriosis and had what sounds to be an ablation for that. She also has a history of cholecystectomy. No other abdominal surgeries. She says the pain is mainly in her right pelvic and radiates down into her rectum. She does have a history of hemorrhoids but says this feels nothing similar to hemorrhoids. TRAVEL OUTSIDE OF THE [place] IN LAST 30 DAYS: No - Related Data Allergies/Adverse Reactions: latex [Latex] Allergy (Intermediate, Verified 06/30/17 12:25) Rash, pelvic infection morphine [Morphine] Adverse Reaction (Verified 06/30/17 12:25) Makes pain worse Home Medications: Current Home Medications No Home Medications 07/21/17 [History] Past Medical History - Social History Smoking Status: Unknown if Ever Smoked Frequency of alcohol use: None Drug Abuse: None Family History: CAD, COPD, CVA, Hyperlipidemia, Hypertension - Past Medical History Cardiac Medical History: Denies: Hx Coronary Artery Disease, Hx Heart Attack, Hx Hypertension Pulmonary Medical History: Reports: Hx Asthma Denies: Hx Bronchitis, Hx COPD, Hx Pneumonia Neurological Medical History: Reports: Hx Migraine. Denies: Hx Cerebrovascular Accident, Hx Seizures Renal/ Medical History: Reports: Hx Ovarian Cysts, Hx Pelvic Inflammatory Disease. Denies: Hx Peritoneal Dialysis GI Medical History: Reports: Hx Gastritis, Hx Gastroesophageal Reflux Disease Musculoskeltal Medical History: Reports Hx Arthritis Skin Medical History: Reports Hx Eczema Psychiatric Medical History: Reports: Hx Anxiety, Hx Depression Past Surgical History: Reports: Hx Section, Hx Cholecystectomy - March 08, 2012, Hx Gynecologic Surgery - Endoscopy for endometriosis, Hx Orthopedic Surgery - Immunizations Immunizations up to date: Yes Hx Diphtheria, Pertussis, Tetanus Vaccination: Yes Review of Systems - Review of Systems Notes: My Normal Review Basic REVIEW OF SYSTEMS: CONSTITUTIONAL : Denies fever, chills, or sweats. Denies recent illness. RESPIRATORY: Denies cough, cold, or chest congestion. Denies shortness of breath, difficulty breathing, or wheezing. GASTROINTESTINAL: Denies abdominal pain. Denies nausea, vomiting, or diarrhea. Denies constipation. Last BM: GENITOURINARY: Denies difficulty urinating, painful urination, burning, frequency, or blood in urine. FEMALE GENITOURINARY: Right sided pelvic pain. MUSCULOSKELETAL: Denies neck or back pain or joint pain or swelling. SKIN: Denies rash or skin lesions. NEUROLOGICAL: Denies altered mental status or loss of consciousness. Denies headache. Denies weakness or paralysis or loss of use of either side. Denies problems with gait or speech. Denies sensory or motor loss. ALL OTHER SYSTEMS REVIEWED AND NEGATIVE. Physical Exam - Vital signs Vitals: Temp Pulse Resp BP Pulse Ox 98.1 F 79 18 140/66 H 97 07/20/17 23:36 07/20/17 23:36 07/20/17 23:36 07/20/17 23:36 07/20/17 23:36 - Notes Notes: General Appearance: Well nourished, alert, cooperative, no acute distress, moderate obvious discomfort. Vitals: reviewed, See vital signs table. Head: no swelling or tenderness to the head Eyes: PERRL, EOMI, Conjuctiva clear Mouth: No decreasd moisture Lungs: No wheezing, No rales, No rhonci, No accessory muscle use, good air exchange bilaterally. Heart: Normal rate, Regular rythm, No murmur, no rub Abdomen: Normal BS, soft, No rigidity, right-sided abdominal tenderness to palpation. Patient does have some pain when I push on left side of her abdomen but she feels it more in the right., No guarding, no rebound, Pelvic exam:Normal external genitalia. No blood in vaginal vault. no abnormal discharge. No vaginal lacerations seen. Some pain in right pelvis during exam. Pelvic exam chaperoned by female nurse Krystal. Extremities: strength 5/5 in all extremities, good pulses in all extremities, no swelling or tenderness in the extremities, no edema. Skin: warm, dry, appropriate color, no rash Neuro: speech clear, oriented x 3, normal affect, responds appropriately to questions. Course - Re-evaluation Re-evalutation: 07/21/17 00:28 I performed a quick vaginal exam to make sure is no evidence of vaginal laceration history of trauma before she proceeded to transvaginal ultrasound. Vaginal exam was normal. I informed the nurse that we need to get her to ultrasound soon as possible to rule out torsion. 07/21/17 02:22 Patient's pain is much improved after pain medication. Ultrasound fortunately did not show ovarian torsion. It does show what appears to be a hemorrhagic ovarian cyst on the right side with small hydrosalpinx. I talked to patient length about possible . She says that she does not think she be as she is only active with a female at this time. She does not want stay for test. I have ordered a test. She wants to be discharged. I will discharge her as she requests but I am still going to wait for the test come back to follow-up on this. This is mainly because of the hydrosalpinx. Is followed by Dr. Lux, counter person. I informed her to call his office this morning for close follow-up appointment for reevaluation repeat ultrasound. I encouraged her return to ER immediately if she has any worsening abdominal pain, fevers, or vaginal bleeding. Patient agrees with plan will be discharged home. Dictation of this chart was performed using voice recognition software; therefore, there may be some unintended grammatical errors. - Vital Signs Vital signs: Temp Pulse Resp BP Pulse Ox 98.1 F 79 18 140/66 H 97 07/20/17 23:36 07/20/17 23:36 07/20/17 23:36 07/20/17 23:36 07/20/17 23:36 Discharge - Discharge Clinical Impression: Hemorrhagic ovarian cyst Condition: Good Disposition: HOME, SELF-CARE Instructions: Oral Narcotic Medication ([facility]) Additional Instructions: You have what appears to be a hemorrhagic ovarian cyst on your right ovary on ultrasound. You also have a small amount of fluid in the right fallopian tube. These need to be followed up very closely with repeat ultrasound. Please call your Robotics Specialist to make a close follow up appointment this week. Please return to the ER immediately if you have fevers, worsening abdominal pain, heavy vaginal bleeding. Referrals: MAYLIN LUX MD [ACTIVE STAFF] - Follow up in 3-5 days
--- NOTE | 2017-07-21 01:29 | RADIOLOGY REPORT (SQ) ---
EXAM DESCRIPTION: U/S NON OB PEL TV W/DOPPLER CLINICAL HISTORY: 22 years, Female, right lower pelvic pain LMP 06/26/2017. COMPARISON: None. TECHNIQUE: Transvaginal. LIMITATIONS: None. FINDINGS: 6.2 x 6.1 x 4.5 cm right ovary contains a 5.5 x 5.2 x 4.1 cm complex cystic mass probably due to a hemorrhagic cyst. Additional, likely small right hydrosalpinx. 10.2 cm uterus, 1.5 cm endometrial stripe thickness, 3.9 cm left ovary appear otherwise normal size, shape, echotexture, and vascularity. No significant free fluid. IMPRESSION: 1. Indeterminate, probably benign 5.5 cm cystic lesion of the right adnexa may indicate a hemorrhagic cyst. Cannot exclude other neoplasm. Follow-up ultrasound recommended in 6-12 weeks. 2. Small right hydrosalpinx. 2011 [employer]- All Rights Reserved
[2017-07-21] MEDS ORDERED: HYDROCODONE/ACETAMINOPHEN 5-325 MG (6 TAB/ER DISP) PO PRN (02:15)
[2017-07-21 02:28] VITALS: BP 121/55
== END 2017-07-21 02:27 | disposition home or self-care (01) ==
LOC: ER 23:35
DX: N83.201 Unspecified ovarian cyst, right side (principal); N70.11 Chronic salpingitis; R10.2 Pelvic and perineal pain; J45.909 Unspecified asthma, uncomplicated; Z90.49 Acquired absence of other specified parts of digestive tract; Z87.42 Personal history of other diseases of the female genital tract; Z91.040 Latex allergy status
CPT/HCPCS: 96376; 99284; 96374; 81025; 76830; 93976; J1170

== ENCOUNTER 2017-09-05 22:37 | Emergency (ER) | payer MEDICAID ==
[2017-09-05 23:15] VITALS: BP 125/56
[2017-09-06] MEDS ORDERED: PENICILLIN V POTASSIUM 500 MG TABLET PO ONE (00:22)
[2017-09-06] MEDS ORDERED: BUPIVACAINE HCL 0.5 % INJ/PF 30 ML SDV INJ ONE (00:22)
[2017-09-06] MEDS ORDERED: IBUPROFEN 800 MG TABLET PO ONE (00:22)
--- NOTE | 2017-09-06 00:23 | ER Document Report ---
HPI - HPI Pain Level: 4 Context: Patient is a 22-year-old female presents emergency department complaining of left lower toothache for the past 2 weeks is gotten worse over the past couple of days. She states that she does have an appointment with her dentist on Thursday. States that she has been taking 800 mg of Motrin and Tylenol at home without any significant improvement in her pain she otherwise denies any purulent drainage, purulent odor. Denies any difficulty swallowing, difficulty breathing. States it does hurt to chew. Otherwise tolerating p.o. fluids without any difficulty. She admits to pain radiating into her ear and into her jaw. - REPRODUCTIVE Reproductive: DENIES: : Past Medical History - Social History Smoking Status: Current Every Day Smoker Family History: CAD, COPD, CVA, Hyperlipidemia, Hypertension - Past Medical History Cardiac Medical History: Denies: Hx Coronary Artery Disease, Hx Heart Attack, Hx Hypertension Pulmonary Medical History: Reports: Hx Asthma Denies: Hx Bronchitis, Hx COPD, Hx Pneumonia Neurological Medical History: Reports: Hx Migraine. Denies: Hx Cerebrovascular Accident, Hx Seizures Renal/ Medical History: Reports: Hx Ovarian Cysts, Hx Pelvic Inflammatory Disease. Denies: Hx Peritoneal Dialysis GI Medical History: Reports: Hx Gastritis, Hx Gastroesophageal Reflux Disease Musculoskeltal Medical History: Reports Hx Arthritis Skin Medical History: Reports Hx Eczema Psychiatric Medical History: Reports: Hx Anxiety, Hx Depression Past Surgical History: Reports: Hx Section, Hx Cholecystectomy - March 08, 2012, Hx Gynecologic Surgery - Endoscopy for endometriosis, Hx Orthopedic Surgery - Immunizations Immunizations up to date: Yes Hx Diphtheria, Pertussis, Tetanus Vaccination: Yes Vertical Provider Document - CONSTITUTIONAL Agree With Documented VS: Yes Notes: PHYSICAL EXAM GENERAL: Alert, interacts well. HEENT: NCAT, pale conjunctiva, MMM, Uvula midline. Airway patent. No evidence of tonsillar enlargement, peritonsillar abscess, retropharyngeal abscess. Evidence of dental caries throughout all her remaining teeth with significant fracture of tooth 19 without associated abscess, purulent drainage neck: No evidence of Alfonzo's angina. Trachea midline without any associated lymphedema LUNGS: Clear to auscultation bilaterally, no wheezes, rales, or rhonchi. No respiratory distress. HEART: Regular rate and rhythm. No murmurs, gallops, or rubs. NEUROLOGICAL: Alert and oriented x4. Normal speech. PSYCH: Normal affect, normal mood. SKIN: Warm, dry, normal turgor. No rashes or lesions noted. - INFECTION CONTROL TRAVEL OUTSIDE OF THE [place] IN LAST 30 DAYS: No - RESPIRATORY O2 Sat by Pulse Oximetry: 100 Course - Re-evaluation Re-evalutation: 09/06/17 00:58 Presentation is most consistent with likely an infected tooth. Airway is patent. Vitals within normal limits. Patient is able swallow without any difficulty. There is no significant facial swelling. Patient will be started on antibiotics. Dental block was attempted but patient refused the rest of the injection. I've instructed to follow-up with dentistry as earliest ability for definitive management. Return precautions and follow-up recommendations have been discussed at length. - Vital Signs Vital signs: Temp Pulse Resp BP Pulse Ox 98.2 F 88 20 125/56 L 100 09/05/17 23:13 09/05/17 23:13 09/05/17 23:13 09/05/17 23:13 09/05/17 23:13 Discharge - Discharge Clinical Impression: Toothache Condition: Good Disposition: HOME, SELF-CARE Additional Instructions: You have been seen for dental pain. It is very important that you follow-up with a dentist for definitive care. Please return if you develop fever greater than 101, swelling in your face, vomiting, difficulty breathing or swallowing, or any other symptoms that are concerning to you. For pain you should take ibuprofen 600 mg every 6 hours as needed. Prescriptions: Penicillin V Potassium [Penicillin Vk 500 mg Tablet] 500 mg PO TID 7 Days #21 tablet Forms: Smoking Cessation Education
== END 2017-09-06 01:06 | disposition home or self-care (01) ==
LOC: ER 22:37
DX: K08.9 Disorder of teeth and supporting structures, unspecified (principal); F17.200 Nicotine dependence, unspecified, uncomplicated; Z90.49 Acquired absence of other specified parts of digestive tract
CPT/HCPCS: 99282; J3490 ×3

== ENCOUNTER 2017-09-18 12:35 | Emergency (ER) | payer MEDICAID ==
[2017-09-18] MEDS ORDERED: ONDANSETRON 4 MG TAB.RAPDIS PO ONE (13:08)
--- NOTE | 2017-09-18 13:11 | ER Document Report ---
HPI - HPI Patient complains to provider of: dental pain Onset: Other - 3 days Onset/Duration: Persistent Quality of pain: Achy Pain Level: 4 Context: Patient presents complaining of dental pain for the past 3 days. Patient states she had a tooth pulled 3 days ago and has developed pain since then. Patient is concerned that she needs an antibiotic. Patient does state that she vomited once today. Patient denies any fever. Associated Symptoms: Other - Dental pain. denies: Fever Exacerbated by: Denies Relieved by: Denies Similar symptoms previously: Yes Recently seen / treated by doctor: Yes - ROS ROS below otherwise negative: Yes Systems Reviewed and Negative: Yes All other systems reviewed and negative - CONSTITUTIONAL Constitutional: DENIES: Fever - EENT Notes: dental pain - REPRODUCTIVE Reproductive: DENIES: : - DERM Skin Color: Normal Skin Problems: None Past Medical History - General Information source: Patient - Social History Smoking Status: Current Every Day Smoker Smoking Education Provided: Yes Frequency of alcohol use: None Drug Abuse: None Occupation: motel food service supervisor Family History: CAD, COPD, CVA, Hyperlipidemia, Hypertension - Past Medical History Cardiac Medical History: Denies: Hx Coronary Artery Disease, Hx Heart Attack, Hx Hypertension Pulmonary Medical History: Reports: Hx Asthma Denies: Hx Bronchitis, Hx COPD, Hx Pneumonia Neurological Medical History: Reports: Hx Migraine. Denies: Hx Cerebrovascular Accident, Hx Seizures Renal/ Medical History: Reports: Hx Ovarian Cysts, Hx Pelvic Inflammatory Disease. Denies: Hx Peritoneal Dialysis GI Medical History: Reports: Hx Gastritis, Hx Gastroesophageal Reflux Disease Musculoskeltal Medical History: Reports Hx Arthritis Skin Medical History: Reports Hx Eczema Psychiatric Medical History: Reports: Hx Anxiety, Hx Depression Past Surgical History: Reports: Hx Section, Hx Cholecystectomy - March 08, 2012, Hx Gynecologic Surgery - Endoscopy for endometriosis, Hx Orthopedic Surgery - Immunizations Immunizations up to date: Yes Hx Diphtheria, Pertussis, Tetanus Vaccination: Yes Vertical Provider Document - CONSTITUTIONAL Agree With Documented VS: Yes Exam Limitations: No Limitations General Appearance: WD/WN, No Apparent Distress - INFECTION CONTROL TRAVEL OUTSIDE OF THE [place] IN LAST 30 DAYS: No - HEENT HEENT: Atraumatic, Normocephalic. negative: Pharyngeal Exudate, Pharyngeal Tenderness, Pharyngeal Erythema, Tympanic Membrane Red, Tympanic Membrane Bulging Mouth Diagram: 1 - tenderness, s/p extraction, mild inflammation, no obvious abscess, no trismus - NECK Neck: Normal Inspection, Supple. negative: Lymphadenopathy-Left, Lymphadenopathy-Right - RESPIRATORY Respiratory: Breath Sounds Normal, No Respiratory Distress O2 Sat by Pulse Oximetry: 98 - CARDIOVASCULAR Cardiovascular: Regular Rate, Regular Rhythm, No Murmur - BACK Back: Normal Inspection - MUSCULOSKELETAL/EXTREMETIES Musculoskeletal/Extremeties: MAEW - NEURO Level of Consciousness: Awake, Alert, Appropriate Motor/Sensory: No Motor Deficit - DERM Integumentary: Warm, Dry Course - Vital Signs Vital signs: Temp Pulse Resp BP Pulse Ox 98.7 F 78 16 107/56 L 98 09/18/17 12:45 09/18/17 12:45 09/18/17 12:45 09/18/17 12:45 09/18/17 12:45 Discharge - Discharge Clinical Impression: pain after dental extraction, Nausea Condition: Stable Disposition: HOME, SELF-CARE Instructions: Clindamycin ([facility]), Nausea or Vomiting, Nonspecific ([facility]), Toothache ([facility]) Additional Instructions: Return immediately for any new or worsening symptoms Followup with your primary care provider, call tomorrow to make a followup appointment Follow-up with your dental care provider for recheck Prescriptions: Clindamycin HCl [Cleocin 300 mg Capsule] 300 mg PO TID #21 capsule Ondansetron HCl [Zofran 4 mg Tablet] 1 - 2 tab PO Q6 PRN #8 tablet PRN Reason: Forms: Smoking Cessation Education, Return to Work Referrals: SHIVANI VALERA DO [Primary Care Provider] - Follow up as needed
[2017-09-18 14:03] VITALS: BP 132/57
== END 2017-09-18 14:03 | disposition home or self-care (01) ==
LOC: ER 12:35
DX: K08.89 Other specified disorders of teeth and supporting structures (principal); R11.2 Nausea with vomiting, unspecified; Z98.890 Other specified postprocedural states; F17.200 Nicotine dependence, unspecified, uncomplicated
CPT/HCPCS: 99282; S0119

== ENCOUNTER 2017-10-13 11:49 | Emergency (ER) | payer MEDICAID ==
[2017-10-13] MEDS ORDERED: ACETAMINOPHEN 325 MG TABLET PO ONE (13:00)
--- NOTE | 2017-10-13 13:05 | ER Document Report ---
ED Medical Screen (RME) - General Chief Complaint: Pelvic Pain Stated Complaint: STOMACH PAIN Time Seen by Provider: 10/13/17 12:53 Notes: RME DISCLOSURE I have seen this patient as part of a Rapid Medical Evaluation and, if applicable, placed any initially appropriate orders. The patient will be seen and fully evaluated, including a full history and physical exam, by a provider ( in Main ED or Fast Track) when a room becomes available. 22-year-old female here with complaints of ongoing daily endometriosis pelvic pain progressively worsening for the past 1 week. She has been taking ibuprofen with minimal relief. She has had some nausea but no vomiting. No dysuria hematuria hesitancy frequency. She tried to go to her [facility]AT[facility] SERVICES PRODUCER however Medicaid/Medicare will no longer cover this provider. She goes her family doctor a lot of money and therefore they would not see her. She states this feels similar to her endometriosis pain. TRAVEL OUTSIDE OF THE [place] IN LAST 30 DAYS: No - Related Data Allergies/Adverse Reactions: latex [Latex] Allergy (Intermediate, Verified 10/13/17 11:52) Rash, pelvic infection morphine [Morphine] Adverse Reaction (Verified 10/13/17 11:52) Makes pain worse Past Medical History - General Last Menstrual Period: 09/24/2017 - Social History Chew tobacco use (# tins/day): No Frequency of alcohol use: None Drug Abuse: None Family history: Hypertension - Past Medical History Cardiac Medical History: Denies: Hx Coronary Artery Disease, Hx Heart Attack, Hx Hypertension Pulmonary Medical History: Reports: Hx Asthma Denies: Hx Bronchitis, Hx COPD, Hx Pneumonia Neurological Medical History: Reports: Hx Migraine. Denies: Hx Cerebrovascular Accident, Hx Seizures Renal/ Medical History: Reports: Hx Ovarian Cysts, Hx Pelvic Inflammatory Disease. Denies: Hx Peritoneal Dialysis GI Medical History: Reports: Hx Gastritis, Hx Gastroesophageal Reflux Disease Musculoskeltal Medical History: Reports Hx Arthritis Skin Medical History: Reports Hx Eczema Psychiatric Medical History: Reports: Hx Anxiety, Hx Depression Past Surgical History: Reports: Hx Section, Hx Cholecystectomy - March 08, 2012, Hx Gynecologic Surgery - Endoscopy for endometriosis, Hx Orthopedic Surgery - Immunizations Immunizations up to date: Yes Hx Diphtheria, Pertussis, Tetanus Vaccination: Yes History of Influenza Vaccine for 04/2017 - 09/2017 Season: No Physical Exam - Vital signs Vitals: Temp Pulse Resp BP Pulse Ox 98.5 F 78 18 138/77 H 100 10/13/17 11:53 10/13/17 11:53 10/13/17 11:53 10/13/17 11:53 10/13/17 11:53 Course - Vital Signs Vital signs: Temp Pulse Resp BP Pulse Ox 98.5 F 78 18 138/77 H 100 10/13/17 11:53 10/13/17 11:53 10/13/17 11:53 10/13/17 11:53 10/13/17 11:53
[2017-10-13 13:59] LABS: APPEARANCE,URINE CLEAR; BILIRUBIN,URINE NEGATIVE (NEGATIVE); COLOR,URINE YELLOW; GLUCOSE, URINE NEGATIVE (NEGATIVE); KETONES,URINE NEGATIVE (NEGATIVE); LEUKOCYTE ESTERASE,URINE NEGATIVE (NEGATIVE); NITRITE,URINE NEGATIVE (NEGATIVE); PROTEIN,URINE NEGATIVE (NEGATIVE); URINE SPECIFIC GRAVITY 1.016; UROBILINOGEN,URINE NEGATIVE mg/dL (<2.0)
[2017-10-13] MEDS ORDERED: KETOROLAC TROMETHAMINE 60 MG/2 ML SDV IM ONE (14:07)
[2017-10-13] MEDS ORDERED: OXYCODONE-ACETAMINOPHEN 5-325 MG TABLET PO ONE (14:07)
--- NOTE | 2017-10-13 15:20 | ER Document Report ---
ED GI/ - General Chief Complaint: Pelvic Pain Stated Complaint: STOMACH PAIN Time Seen by Provider: 10/13/17 12:53 Mode of Arrival: Ambulatory Information source: Patient Notes: HPI-22 years old female with a history of severe endometriosis presents today with diffuse abdominal pain,. Is about to come on within a day or 2. She had her menstrual cycle last month during this time. Pain is associated with slight nausea no vomiting no fever chills or other constitutional symptoms. She has clear not smelling vaginal discharge. Denies any bleeding. Denies any dysuria frequency or urgency. Face the vaginal discharge is normal for her eyes been going on for a long time particularly just before the periods. REVIEW OF SYSTEMS: CONSTITUTIONAL : Denies fever, chills, or sweats. Denies recent illness. EENT: Denies eye, ear, throat, or mouth pain or symptoms. Denies nasal or sinus congestion or discharge. Denies throat, tongue, or mouth swelling or difficulty swallowing. CARDIOVASCULAR: Denies chest pain. Denies palpitations or racing or irregular heart beat. Denies ankle edema. RESPIRATORY: Denies cough, cold, or chest congestion. Denies shortness of breath, difficulty breathing, or wheezing. GASTROINTESTINAL: Denies abdominal pain or distention. Denies nausea, vomiting , or diarrhea. Denies blood in vomitus, stools, or per rectum. Denies black, tarry stools. Denies constipation. GENITOURINARY: Denies difficulty urinating, painful urination, burning, frequency, blood in urine, or discharge. FEMALE GENITOURINARY: Denies vaginal bleeding, heavy or abnormal periods, irregular periods. Denies vaginal discharge or odor. MUSCULOSKELETAL: Denies back or neck pain or stiffness. Denies joint pain or swelling. SKIN: Denies rash, lesions or sores. HEMATOLOGIC : Denies easy bruising or bleeding. LYMPHATIC: Denies swollen, enlarged glands. NEUROLOGICAL: Denies confusion or altered mental status. Denies passing out or loss of consciousness. Denies dizziness or lightheadedness. Denies headache. Denies weakness or paralysis or loss of use of either side. Denies problems with gait or speech. Denies sensory loss, numbness, or tingling. Denies seizures. PSYCHIATRIC: Denies anxiety or stress. Denies depression, suicidal ideation, or homicidal ideation. ALL OTHER SYSTEMS REVIEWED AND NEGATIVE. PHYSICAL EXAMINATION: GENERAL: Well-appearing, well-nourished and seems to be uncomfortable in pain HEAD: Atraumatic, normocephalic. EYES: Pupils equal round and reactive to light, extraocular movements intact, conjunctiva are normal. ENT: Nares patent, oropharynx clear without exudates. Moist mucous membranes. NECK: Normal range of motion, supple without lymphadenopathy LUNGS: Breath sounds clear to auscultation bilaterally and equal. No wheezes rales or rhonchi. HEART: Regular rate and rhythm without murmurs ABDOMEN: Scaphoid diffuse tenderness no organomegaly positive bowel sounds.. No guarding, no rebound. No masses appreciated. Female : deferred Musculoskeletal: Normal range of motion, no pitting or edema. No cyanosis. NEUROLOGICAL: Cranial nerves grossly intact. Normal speech, normal gait. Normal sensory, motor exams PSYCH: Normal mood, normal affect. SKIN: Warm, Dry, normal turgor, no rashes or lesions noted. Dictation was performed using [employer] voice recognition software TRAVEL OUTSIDE OF THE [place] IN LAST 30 DAYS: No - HPI Patient complains to provider of: Abdominal pain. No: Diarrhea, Dysuria, Feeding tube problem, Flank pain, Antoine catheter problem, Hematuria, Missed/ Late menses, Pelvic pain, , Urinary retention, Vaginal bleeding, Vaginal discharge, Vaginal pain, Vomiting, Other Onset: Yesterday Timing/Duration: Gradual Quality of pain: Sharp Severity at maximum: Severe Severity in ED: Severe Pain Level: 4 Context: denies: Bad food, Lifting, Out of the country travel, , Recent trauma, Other Location: LLQ, RUQ. No: Chest pain, Epigastric, LUQ, RLQ, Left flank, Right flank, Low back, Suprapubic, Pelvis, Vaginal, Vulvar, Rectal, Other Vaginal bleeding (Compared to normal period): denies: None, Spotting, Risk Mgr, Similar, Heavier, Severe, Bright red, Dark brown, Passing clots, Passing tissue Menstrual period history: denies: Abnormal, Irregular, Missed, , S/P menopausal, Post-menopausal Sexual history: Active. denies: Inactive, New partner, Multiple partners, Unprotected intercourse, Rectal penetration, STD exposure, control patch, control pills, Condoms, Depo, IUD Associated symptoms: denies: None, Blood in emesis, Blood in stool, Chest pain, Chills, Coffee ground emesis, Constipation, Diarrhea, Dizzy, Dysuria, Fever, Hard stool, Hematuria, Hurts to breath, Inguinal mass, Lightheaded, Loss of appetite, Nausea, Odor, Painful intercourse, Radiates to back, Radiates to chest , Radiates to vagina, Radiates to shoulder, Shortness of breath, Sweaty, Syncope , Urinary hesitancy, Urinary frequency, Urinary retention, Urinary urgency, Vaginal discharge, Vomiting, Other Exacerbated by: denies: Denies, Supine, Sitting, Standing, Movement, Walking, Coughing, Deep breathing, Food, Other Relieved by: denies: Denies, Supine, Sitting, Standing, Remaining still, Antacids, Food, Other - Related Data Allergies/Adverse Reactions: latex [Latex] Allergy (Intermediate, Verified 10/13/17 11:52) Rash, pelvic infection morphine [Morphine] Adverse Reaction (Verified 10/13/17 11:52) Makes pain worse Past Medical History - General Last Menstrual Period: 09/24/2017 - Social History Smoking Status: Current Every Day Smoker Chew tobacco use (# tins/day): No Frequency of alcohol use: None Drug Abuse: None Family History: CAD, COPD, CVA, Hyperlipidemia, Hypertension Patient has suicidal ideation: No Patient has homicidal ideation: No - Past Medical History Cardiac Medical History: Denies: Hx Coronary Artery Disease, Hx Heart Attack, Hx Hypertension Pulmonary Medical History: Reports: Hx Asthma Denies: Hx Bronchitis, Hx COPD, Hx Pneumonia Neurological Medical History: Reports: Hx Migraine. Denies: Hx Cerebrovascular Accident, Hx Seizures Renal/ Medical History: Reports: Hx Ovarian Cysts, Hx Pelvic Inflammatory Disease. Denies: Hx Peritoneal Dialysis GI Medical History: Reports: Hx Gastritis, Hx Gastroesophageal Reflux Disease Musculoskeltal Medical History: Reports Hx Arthritis Skin Medical History: Reports Hx Eczema Psychiatric Medical History: Reports: Hx Anxiety, Hx Depression Past Surgical History: Reports: Hx Section, Hx Cholecystectomy - March 08, 2012, Hx Gynecologic Surgery - Endoscopy for endometriosis, Hx Orthopedic Surgery - Immunizations Immunizations up to date: Yes Hx Diphtheria, Pertussis, Tetanus Vaccination: Yes Review of Systems - Review of Systems Notes: As per history of complain Physical Exam - Vital signs Vitals: Temp Pulse Resp BP Pulse Ox 98.5 F 78 18 138/77 H 100 10/13/17 11:53 10/13/17 11:53 10/13/17 11:53 10/13/17 11:53 10/13/17 11:53 Course - Re-evaluation Re-evalutation: 10/13/17 15:18 Given Toradol, Percocet With pain improvement she was discharged home - Vital Signs Vital signs: Temp Pulse Resp BP Pulse Ox 98.5 F 78 18 138/77 H 100 10/13/17 11:53 10/13/17 11:53 10/13/17 11:53 10/13/17 11:53 10/13/17 11:53 Discharge - Discharge Clinical Impression: Endometriosis Abdominal pain Qualifiers: Abdominal location: generalized Qualified Code(s): R10.84 - Generalized abdominal pain Condition: Fair Disposition: HOME, SELF-CARE Instructions: Endometriosis ([facility]), Recurring Abdominal Pain, Child ([facility]) Prescriptions: Ketorolac Tromethamine [Toradol 10 mg Tablet] 10 mg PO Q8HP PRN #14 tablet PRN Reason: Hydrocodone/Acetaminophen [Young 5-325 mg Tabs (6 Tab/ER Disp)] 6 tab PO BID #1 dspk
[2017-10-13 15:51] VITALS: BP 125/69
[2017-10-13] MEDS ORDERED: HYDROCODONE/ACETAMINOPHEN 5-325 MG (6 TAB/ER DISP) PO PRN (15:52)
== END 2017-10-13 16:06 | disposition home or self-care (01) ==
LOC: ER 11:49
DX: N80.9 Endometriosis, unspecified (principal); R10.84 Generalized abdominal pain; J45.909 Unspecified asthma, uncomplicated; F17.200 Nicotine dependence, unspecified, uncomplicated; Z91.040 Latex allergy status
CPT/HCPCS: 99284; 96372; 81025; 81001; J3490; J1885

== ENCOUNTER 2018-05-27 13:55 | Emergency (ER) | payer SELFPAY ==
[2018-05-27 14:08] VITALS: BP 129/54
--- NOTE | 2018-05-27 14:41 | ER Document Report ---
ED Medical Screen (RME) - General TRAVEL OUTSIDE OF THE [place] IN LAST 30 DAYS: No <OCTAVIA HAWK - Last Filed: 05/27/18 14:40> <XIOMARA HOLM - Last Filed: 05/27/18 19:04> - General Chief Complaint: Abdominal Pain Stated Complaint: ABDOMINAL PAIN Time Seen by Provider: 05/27/18 14:35 Notes: 22 years old female presents today because of lower abdominal pain, feeling anxious because she had unprotected sex. This was about the fourth of last month. Subsequently she had her menstrual cycle on the . The abdominal pain left developed last few days. Denies any dysuria frequency urgency. Denies he denies any vaginal discharges. (OCTAVIA HAWK) (XIOMARA HOLM) - HPI Context: 22 yr old female presents today with complaints (XIOMARA HOLM) - Related Data Allergies/Adverse Reactions: latex [Latex] Allergy (Intermediate, Verified 05/27/18 13:57) Rash, pelvic infection morphine [Morphine] Adverse Reaction (Verified 05/27/18 13:57) Makes pain worse Past Medical History - Social History Family history: Hypertension - Past Medical History Cardiac Medical History: Denies: Hx Coronary Artery Disease, Hx Heart Attack, Hx Hypertension Pulmonary Medical History: Reports: Hx Asthma Denies: Hx Bronchitis, Hx COPD, Hx Pneumonia Neurological Medical History: Reports: Hx Migraine. Denies: Hx Cerebrovascular Accident, Hx Seizures Renal/ Medical History: Reports: Hx Ovarian Cysts, Hx Pelvic Inflammatory Disease. Denies: Hx Peritoneal Dialysis GI Medical History: Reports: Hx Gastritis, Hx Gastroesophageal Reflux Disease Musculoskeltal Medical History: Reports Hx Arthritis Skin Medical History: Reports Hx Eczema Psychiatric Medical History: Reports: Hx Anxiety, Hx Depression Past Surgical History: Reports: Hx Section, Hx Cholecystectomy - March 08, 2012, Hx Gynecologic Surgery - Endoscopy for endometriosis, Hx Orthopedic Surgery - Immunizations Immunizations up to date: Yes Hx Diphtheria, Pertussis, Tetanus Vaccination: Yes History of Influenza Vaccine for 04/2017 - 09/2017 Season: No <OCTAVIA HAWK - Last Filed: 05/27/18 14:40> - Vital signs Vitals: Temp Pulse Resp BP Pulse Ox 98.6 F 111 H 20 129/54 H 100 05/27/18 14:07 05/27/18 14:07 05/27/18 14:07 05/27/18 14:07 05/27/18 14:07 Course - Laboratory Result Diagrams: 05/27/18 14:50 <XIOMARA HOLM - Last Filed: 05/27/18 19:04> - Vital Signs Vital signs: Temp Pulse Resp BP Pulse Ox 98.6 F 111 H 20 129/54 H 100 05/27/18 14:07 05/27/18 14:07 05/27/18 14:07 05/27/18 14:07 05/27/18 14:07 - Laboratory Laboratory results interpreted by me: 05/27/18 05/27/18 14:41 14:50 Hgb 16.3 H Urine Protein 30 H Urine Ketones 80 H Urine Urobilinogen 2.0 H Urine Ascorbic Acid 20 H Doctor's Discharge <OCTAVIA HAWK - Last Filed: 05/27/18 14:40> <XIOMARA HOLM - Last Filed: 05/27/18 19:04> - Discharge Clinical Impression: Dehydration Condition: Stable Disposition: HOME, SELF-CARE Instructions: Dehydration ([facility]), Endometriosis ([facility]) Additional Instructions: Dehydration Dehydration can result from vomiting or diarrhea, fever, or decreased intake of fluids. If severe, hospitalization and intravenous fluids may be required. Most cases are treated at home with fluids by mouth. For the next 24 hours, drink lots of clear fluids. In mild cases, this can be soda pop or sports drinks. For more severe dehydration, the doctor may recommend special fluids such as Pedialyte or Lytren. Try to get three liters ( 3 quarts) of fluid per day. If vomiting occurs, continue to drink the fluids frequently (every 15 to 20 minutes), but in small amounts (one or two ounces). Depending on the type of dehydration, the doctor may prescribe antinausea medicine or potassium replacements. Call the doctor or return for re-examination if you become progressively weak, vomit repeatedly, or have other new symptoms. Call with results of STD testing Return immediately for any new or worsening symptoms. Follow up with primary care provider, call tomorrow to make followup appointment. Prescriptions: Ibuprofen [Ibu] 800 mg PO TIDP PRN #30 tablet PRN Reason: Forms: Return to Work Referrals: MARILYNN GIPSON MD [ACTIVE STAFF] - Follow up in 3-5 days BENJY ROLLE MD [ACTIVE STAFF] - Follow up in 3-5 days
[2018-05-27 15:06] LABS: APPEARANCE,URINE SLIGHTLY-CLOUDY; BILIRUBIN,URINE NEGATIVE (NEGATIVE); COLOR,URINE AMBER; GLUCOSE, URINE NEGATIVE (NEGATIVE); KETONES,URINE 80 mg/dL (NEGATIVE); LEUKOCYTE ESTERASE,URINE NEGATIVE (NEGATIVE); NITRITE,URINE NEGATIVE (NEGATIVE); PROTEIN,URINE 30 mg/dL (NEGATIVE); URINE SPECIFIC GRAVITY 1.027
[2018-05-27 15:09] LABS: ABSOLUTE BASOPHILS # (AUTO) 0.1 10^3/uL (0.0-0.2); ABSOLUTE EOSINOPHILS # (AUTO) 0.1 10^3/uL (0.0-0.6); ABSOLUTE LYMPHOCYTES (AUTO) 2.1 10^3/uL (0.5-4.7); ABSOLUTE MONOCYTES (AUTO) 0.7 10^3/uL (0.1-1.4); ABSOLUTE NEUT (AUTO) 7.5 10^3/uL (1.7-8.2); BASOPHILS % (AUTO) 0.5 % (0-2); EOSINOPHILS % (AUTO) 0.7 % (0-6); HEMATOCRIT 45.9 % (36.0-47.0); HEMOGLOBIN 16.3 g/dL (12.0-15.5); LYMPHOCYTES % (AUTO) 19.8 % (13-45); MEAN CORPUSCULAR HEMOGLOBIN 32.2 pg (27.0-33.4); MEAN CORPUSCULAR HGB CONC 35.4 g/dL (32.0-36.0); MEAN CORPUSCULAR VOLUME 91 fl (80-97); MONOCYTES % (AUTO) 6.8 % (3-13); PLATELET COUNT 202 10^3/uL (150-450); RED BLOOD COUNT 5.05 10^6/uL (3.72-5.28); RED CELL DISTRIBUTION WIDTH 12.9 % (11.5-14.0); SEGMENTED NEUTROPHILS % (AUTO) 72.2 % (42-78); TOTAL CELLS COUNTED % (AUTO) 100 %; WHITE BLOOD COUNT 10.3 10^3/uL (4.0-10.5)
[2018-05-27] MEDS ORDERED: RINGERS SOLUTION,LACTATED 1,000 ML IV PRN (15:45)
[2018-05-27] MEDS ORDERED: KETOROLAC TROMETHAMINE INJ/PF 30 MG/1 ML SDV IV ONE (16:31)
--- NOTE | 2018-05-27 16:31 | ER Document Report ---
HPI - HPI Pain Level: 4 Context: 21-year-old female with a hx of endometrosis presents for evaluation due to suprapubic pain that started approximately 3 days ago for concerns of after having unprotected sexual intercourse with a male on April 22, patient states that she is in a relationship with a female and was concerned that she could be . Patient did have a 5-day menstrual cycle on May 05 2018. States has been extremely anxious with the thoughts of possibly being . Notes: 19-year-old female presents to the ED for evaluation for after having sexual intercourse with a male on April 22, denies protection, patient is concerned of due since she is dating a female. Patient states she does have a history of endometriosis and is unsure if this is causing her pain. Denies any vaginal bleeding or vaginal discharge. Has not tried any over-the- counter medications. Patient is unsure of STDs from sexual encounter, denies any vaginal sores or ulcers Denies fevers, chills, chest pain,palpitations, shortness of breath, dyspnea, nausea, vomiting, diarrhea, abdominal pain, hematuria,b, LH, dizziness, syncope, headaches, wheezing, ST, URI, neck pain, weakness, bowel or bladder dysfunction, saddle anesthesia, numbness or tingling in bilateral upper or lower extremities equally, muscle paralysis, weakness in bilateral upper or lower extremities equally or rash. - REPRODUCTIVE Reproductive: DENIES: : - DERM Skin Color: Normal Past Medical History - General Information source: Patient - Social History Smoking Status: Current Every Day Smoker Chew tobacco use (# tins/day): No Frequency of alcohol use: None Drug Abuse: None Family History: CAD, COPD, CVA, Hyperlipidemia, Hypertension Patient has suicidal ideation: No Patient has homicidal ideation: No - Past Medical History Cardiac Medical History: Denies: Hx Coronary Artery Disease, Hx Heart Attack, Hx Hypertension Pulmonary Medical History: Reports: Hx Asthma Denies: Hx Bronchitis, Hx COPD, Hx Pneumonia Neurological Medical History: Reports: Hx Migraine. Denies: Hx Cerebrovascular Accident, Hx Seizures Renal/ Medical History: Reports: Hx Ovarian Cysts, Hx Pelvic Inflammatory Disease. Denies: Hx Peritoneal Dialysis GI Medical History: Reports: Hx Gastritis, Hx Gastroesophageal Reflux Disease Musculoskeletal Medical History: Reports Hx Arthritis Skin Medical History: Reports Hx Eczema Psychiatric Medical History: Reports: Hx Anxiety, Hx Depression Past Surgical History: Reports: Hx Section, Hx Cholecystectomy - March 08, 2012, Hx Gynecologic Surgery - Endoscopy for endometriosis, Hx Orthopedic Surgery - Immunizations Immunizations up to date: Yes Hx Diphtheria, Pertussis, Tetanus Vaccination: Yes Vertical Provider Document - CONSTITUTIONAL Agree With Documented VS: Yes Notes: PHYSICAL EXAMINATION: GENERAL: Well-appearing, well-nourished and in no acute distress. HEAD: Atraumatic, normocephalic. EYES: Pupils equal round and reactive to light, extraocular movements intact, sclera anicteric, conjunctiva are normal. ENT: nares patent, oropharynx clear without exudates. Moist mucous membranes. NECK: Normal range of motion, supple without lymphadenopathy LUNGS: Breath sounds clear to auscultation bilaterally and equal. No wheezes rales or rhonchi. HEART: Regular rate and rhythm without murmurs ABDOMEN: Soft, nontender, normoactive bowel sounds. No guarding, no rebound. No masses appreciated. : External genitalia without erythema, exudate or discharge. Vaginal vault is without discharge. Cervix is of normal color without lesion. There is no bleeding noted. Uterus is noted to be of normal size and nontender. No cervical motion tenderness is seen. No masses are palpated. os closed, no adnexal tenderness or mass EXTREMITIES: Normal range of motion, no pitting or edema. No cyanosis. NEUROLOGICAL: No focal neurological deficits. Moves all extremities spontaneously and on command. PSYCH: Normal mood, normal affect. SKIN: Warm, Dry, normal turgor, no rashes or lesions noted. - INFECTION CONTROL TRAVEL OUTSIDE OF THE [place] IN LAST 30 DAYS: No Course - Re-evaluation Re-evalutation: 05/27/18 16:33 19-year-old female afebrile who appears to be anxious over presents for prepubic pain, states she is due to get her. In the next 3 days. CBC negative for leukocytosis, anemia. Urinalysis does show dehydration with slight proteinuria. Patient states she feels anxious over concern of with a male though she is in a monogamous female relationship. Patient states she did have a full menstrual cycle on May 05, 2 weeks after sexual intercourse. Patient given IV fluids for rehydration due to ketones in urinalysis. Patient states her anxiety reduced when she found out she was not . Patient requested a blood hCG to be "completely certain". Patient states after a bag of IV fluids she feels. I have reevaluated this patient multiple times and no significant life threatening changes, no signs of toxicity, sepsis or peritonitis are noted. The patient and I have discussed the diagnosis and risks , and we agree with discharging home and close follow-up. We also discussed returning to the Emergency Department immediately if new or worsening symptoms occur with the understanding that symptoms and presentations can change. At this time will discharge with return precautions and follow-up recommendations. Verbal discharge instructions given a the bedside and opportunity for questions given. We have discussed the symptoms which are most concerning (e.g. , worsening pain, fever, nausea, vomiting, abdominal pain, etc.) that necessitate immediate return. Medication warnings reviewed. All questions and concerns answered by this provider. Patient is in agreement with this plan and has verbalized understanding of return precautions and the need for primary care follow-up in the next 24-72 hours. Patient verbalized understanding of plan of care and agree with plan of care. - Vital Signs Vital signs: Temp Pulse Resp BP Pulse Ox 98.6 F 111 H 20 129/54 H 100 05/27/18 14:07 05/27/18 14:07 05/27/18 14:07 05/27/18 14:07 05/27/18 14:07 - Laboratory Result Diagrams: 05/27/18 14:50 Laboratory results interpreted by me: 05/27/18 05/27/18 14:41 14:50 Hgb 16.3 H Urine Protein 30 H Urine Ketones 80 H Urine Urobilinogen 2.0 H Urine Ascorbic Acid 20 H Discharge - Discharge Clinical Impression: Dehydration Condition: Stable Disposition: HOME, SELF-CARE Instructions: Dehydration ([facility]), Endometriosis ([facility]) Additional Instructions: Dehydration Dehydration can result from vomiting or diarrhea, fever, or decreased intake of fluids. If severe, hospitalization and intravenous fluids may be required. Most cases are treated at home with fluids by mouth. For the next 24 hours, drink lots of clear fluids. In mild cases, this can be soda pop or sports drinks. For more severe dehydration, the doctor may recommend special fluids such as Pedialyte or Lytren. Try to get three liters ( 3 quarts) of fluid per day. If vomiting occurs, continue to drink the fluids frequently (every 15 to 20 minutes), but in small amounts (one or two ounces). Depending on the type of dehydration, the doctor may prescribe antinausea medicine or potassium replacements. Call the doctor or return for re-examination if you become progressively weak, vomit repeatedly, or have other new symptoms. Call with results of STD testing Return immediately for any new or worsening symptoms. Follow up with primary care provider, call tomorrow to make followup appointment. Prescriptions: Ibuprofen [Ibu] 800 mg PO TIDP PRN #30 tablet PRN Reason: Forms: Return to Work Referrals: MARILYNN GIPSON MD [ACTIVE STAFF] - Follow up in 3-5 days BENJY ROLLE MD [ACTIVE STAFF] - Follow up in 3-5 days
[2018-05-27 17:20] LABS: T.VAGINALIS (WET MOUNT) NO TRICHOMONAS SEEN; WBCS (WET MOUNT) NO WBCS SEEN; YEAST (WET MOUNT) NO YEAST SEEN
[2018-05-27 18:30] LABS: CHLAM PCR NOT DETECTED (NOT DETECT); GON PCR NOT DETECTED (NOT DETECT)
== END 2018-05-27 17:04 | disposition home or self-care (01) ==
LOC: ER 13:55
DX: E86.0 Dehydration (principal); R10.2 Pelvic and perineal pain; F17.200 Nicotine dependence, unspecified, uncomplicated; Z90.49 Acquired absence of other specified parts of digestive tract
CPT/HCPCS: 99284; 96361; 96374; 36415; 87210; 84703; 85025; 81025; 81001; 87491; 87591; J1885; J7120

== ENCOUNTER 2018-06-18 14:51 | Emergency (ER) | payer SELFPAY ==
--- NOTE | 2018-06-18 16:03 | ER Document Report ---
ED General - General Chief Complaint: Vaginal Bleeding Stated Complaint: VAGINAL BLEEDING,ABDOMINAL PAIN Time Seen by Provider: 06/18/18 15:51 Mode of Arrival: Ambulatory Information source: Patient Notes: Chief complaint: Irregular menstrual bleeding History of complain:( obtained from----patient) 22 years old female presents today with the regular menstrual cycle. Bleeding on and off and stop and then comes back again. No fever chills or other constitutional symptoms. Denies any dizziness blurring of vision. Today she went to the [facility] office. Her Medicaid was not active therefore she could not see the doctors. Onset: As above Duration: As above Severity: Mild Quality: Mild Context: As described above Exacerbating factor and relieving factors: REVIEW OF SYSTEMS: CONSTITUTIONAL : Denies fever, chills, or sweats. Denies recent illness. EENT: Denies eye, ear, throat, or mouth pain or symptoms. Denies nasal or sinus congestion or discharge. Denies throat, tongue, or mouth swelling or difficulty swallowing. CARDIOVASCULAR: Denies chest pain. Denies palpitations or racing or irregular heart beat. Denies ankle edema. RESPIRATORY: Denies cough, cold, or chest congestion. Denies shortness of breath, difficulty breathing, or wheezing. GASTROINTESTINAL: Denies distention. Denies nausea, vomiting, or diarrhea. Denies blood in vomitus, stools, or per rectum. Denies black, tarry stools. Denies constipation. GENITOURINARY: Denies difficulty urinating, painful urination, burning, frequency, blood in urine, or discharge. FEMALE GENITOURINARY: Denies vaginal bleeding, heavy or abnormal periods, irregular periods. Denies vaginal discharge or odor. MUSCULOSKELETAL: Denies back or neck pain or stiffness. Denies joint pain or swelling. SKIN: Denies rash, lesions or sores. HEMATOLOGIC : Denies easy bruising or bleeding. LYMPHATIC: Denies swollen, enlarged glands. NEUROLOGICAL: Denies confusion or altered mental status. Denies passing out or loss of consciousness. Denies dizziness or lightheadedness. Denies headache. Denies weakness or paralysis or loss of use of either side. Denies problems with gait or speech. Denies sensory loss, numbness, or tingling. Denies seizures. PSYCHIATRIC: Denies anxiety or stress. Denies depression, suicidal ideation, or homicidal ideation. ALL OTHER SYSTEMS REVIEWED AND NEGATIVE. PHYSICAL EXAMINATION: GENERAL: Well-appearing, well-nourished and in no acute distress. HEAD: Atraumatic, normocephalic. EYES: Pupils equal round and reactive to light, extraocular movements intact, conjunctiva are normal. ENT: Nares patent, oropharynx clear without exudates. Moist mucous membranes. NECK: Normal range of motion, supple without lymphadenopathy LUNGS: Breath sounds clear to auscultation bilaterally and equal. No wheezes rales or rhonchi. HEART: Regular rate and rhythm without murmurs ABDOMEN: Soft, nontender, nondistended abdomen. No guarding, no rebound. No masses appreciated. Examination of genitals-deferred Musculoskeletal: Normal range of motion, no pitting or edema. No cyanosis. NEUROLOGICAL: Cranial nerves grossly intact. Normal speech, normal gait. Normal sensory, motor exams PSYCH: Normal mood, normal affect. SKIN: Warm, Dry, normal turgor, no rashes or lesions noted. Dictation was performed using [employer] voice recognition software TRAVEL OUTSIDE OF THE [place] IN LAST 30 DAYS: No - HPI Notes: Dictated - Related Data Allergies/Adverse Reactions: latex [Latex] Allergy (Intermediate, Verified 06/18/18 14:53) Rash, pelvic infection morphine [Morphine] Adverse Reaction (Verified 06/18/18 14:53) Makes pain worse Past Medical History - Social History Smoking Status: Current Every Day Smoker Chew tobacco use (# tins/day): No Smoking Education Provided: No Frequency of alcohol use: Rare Drug Abuse: None Lives with: Family Family History: Reviewed & Not Pertinent, CAD, COPD, CVA, Hyperlipidemia, Hypertension - Past Medical History Cardiac Medical History: Denies: Hx Coronary Artery Disease, Hx Heart Attack, Hx Hypertension Pulmonary Medical History: Reports: Hx Asthma Denies: Hx Bronchitis, Hx COPD, Hx Pneumonia Neurological Medical History: Reports: Hx Migraine. Denies: Hx Cerebrovascular Accident, Hx Seizures Renal/ Medical History: Reports: Hx Ovarian Cysts, Hx Pelvic Inflammatory Disease. Denies: Hx Peritoneal Dialysis GI Medical History: Reports: Hx Gastritis, Hx Gastroesophageal Reflux Disease Musculoskeletal Medical History: Reports Hx Arthritis Skin Medical History: Reports Hx Eczema Psychiatric Medical History: Reports: Hx Anxiety, Hx Depression Past Surgical History: Reports: Hx Section, Hx Cholecystectomy - March 08, 2012, Hx Gynecologic Surgery - Endoscopy for endometriosis, Hx Orthopedic Surgery - Immunizations Immunizations up to date: Yes Hx Diphtheria, Pertussis, Tetanus Vaccination: Yes Review of Systems - Review of Systems Notes: Dictated Physical Exam - Vital signs Vitals: Temp Pulse Resp BP Pulse Ox 98.9 F 76 16 124/67 100 06/18/18 14:57 06/18/18 14:57 06/18/18 14:57 06/18/18 14:57 06/18/18 14:57 - Notes Notes: Dictated Course - Vital Signs Vital signs: Temp Pulse Resp BP Pulse Ox 98.9 F 76 16 124/67 100 06/18/18 14:57 06/18/18 14:57 06/18/18 14:57 06/18/18 14:57 06/18/18 14:57 - Laboratory Result Diagrams: 06/18/18 16:12 Discharge - Discharge Clinical Impression: Menstrual bleeding problem Condition: Fair Disposition: HOME, SELF-CARE Instructions: Vaginal Bleeding ([facility]) Prescriptions: Norethindrone-Ethinyl Estrad [Nortrel 1-35 28 Tablet] 1 each PO DAILY #30 tablet
[2018-06-18 16:30] LABS: ABSOLUTE BASOPHILS # (AUTO) 0.1 10^3/uL (0.0-0.2); ABSOLUTE EOSINOPHILS # (AUTO) 0.2 10^3/uL (0.0-0.6); ABSOLUTE LYMPHOCYTES (AUTO) 2.7 10^3/uL (0.5-4.7); ABSOLUTE MONOCYTES (AUTO) 0.6 10^3/uL (0.1-1.4); ABSOLUTE NEUT (AUTO) 5.5 10^3/uL (1.7-8.2); EOSINOPHILS % (AUTO) 1.9 % (0-6); HEMATOCRIT 44.5 % (36.0-47.0); HEMOGLOBIN 15.5 g/dL (12.0-15.5); LYMPHOCYTES % (AUTO) 29.4 % (13-45); MEAN CORPUSCULAR HEMOGLOBIN 31.9 pg (27.0-33.4); MEAN CORPUSCULAR HGB CONC 34.9 g/dL (32.0-36.0); MEAN CORPUSCULAR VOLUME 91 fl (80-97); MONOCYTES % (AUTO) 6.4 % (3-13); PLATELET COUNT 184 10^3/uL (150-450); RED BLOOD COUNT 4.86 10^6/uL (3.72-5.28); RED CELL DISTRIBUTION WIDTH 12.7 % (11.5-14.0); SEGMENTED NEUTROPHILS % (AUTO) 61.3 % (42-78); TOTAL CELLS COUNTED % (AUTO) 100 %
[2018-06-18 17:00] VITALS: BP 131/82
== END 2018-06-18 17:01 | disposition home or self-care (01) ==
LOC: ER 14:51
DX: N92.0 Excessive and frequent menstruation with regular cycle (principal); R10.9 Unspecified abdominal pain; F17.200 Nicotine dependence, unspecified, uncomplicated; Z90.49 Acquired absence of other specified parts of digestive tract; Z91.040 Latex allergy status; Z88.6 Allergy status to analgesic agent
CPT/HCPCS: 36415; 81025; 85025; 99284

== ENCOUNTER 2018-10-19 09:41 | Emergency (ER) | payer SELFPAY ==
[2018-10-19] MEDS ORDERED: KETOROLAC TROMETHAMINE 60 MG/2 ML SDV IM ONE (10:14)
--- NOTE | 2018-10-19 10:17 | ER Document Report ---
ED Medical Screen (RME) - General Chief Complaint: Low Back Pain Stated Complaint: BACK PAIN Time Seen by Provider: 10/19/18 10:10 Primary Care Provider: SHIVANI VALERA DO [Primary Care Provider] - Follow up as needed TRAVEL OUTSIDE OF THE [place] IN LAST 30 DAYS: No - HPI Notes: 10/19/18 10:14 Patient is a 23-year-old female with a history of scoliosis who presents emergency department complaining of low back pain, left buttock pain, trouble standing straight up, and difficulty walking due to pain that began originally in May, but worsened this past week. Patient states that she originally fell down the stairs and thought her pain was improving. Patient states that her pain starts in her back and she will have tingling, pain, and numbness into her legs bilaterally. She is eating and drinking without difficulty. She is urinating normally and having normal bowel movements. Denies history of diabetes, spinal abscess, IV drug abuse. Denies any headache, fever, head injury, neck pain, changes in vision/speech/mentation/hearing, URI, sore throat, chest pain, palpitations, syncope, cough, shortness of breath, wheeze, dyspnea, abdominal pain, nausea/vomiting/diarrhea, urinary retention, dysuria, hematuria, loss of control of bowel or bladder, saddle anesthesia, muscle paralysis/weakness, or rash. I have treated and performed a rapid initial assessment of this patient. A comprehensive ED assessment and evaluation of the patient, analysis of test results and completion of medical decision making process will be conducted by additional ED providers. PHYSICAL EXAMINATION: GENERAL: Patient will not stand straight up and needs assistance with ambulation. Patient became tearful when trying to move around and with palpation to her back. LUNGS: Breath sounds clear to auscultation bilaterally and equal. No wheezes rales or rhonchi. HEART: Regular rate and rhythm without murmurs, rubs, gallops. Extremities: No cyanosis, clubbing, or edema b/l. - Related Data Allergies/Adverse Reactions: latex [Latex] Allergy (Intermediate, Verified 10/19/18 09:43) Rash, pelvic infection morphine [Morphine] Adverse Reaction (Verified 10/19/18 09:43) Makes pain worse Past Medical History - Social History Frequency of alcohol use: None Drug Abuse: None Family history: Hypertension - Past Medical History Cardiac Medical History: Denies: Hx Coronary Artery Disease, Hx Heart Attack, Hx Hypertension Pulmonary Medical History: Reports: Hx Asthma Denies: Hx Bronchitis, Hx COPD, Hx Pneumonia Neurological Medical History: Reports: Hx Migraine. Denies: Hx Cerebrovascular Accident, Hx Seizures Renal/ Medical History: Reports: Hx Ovarian Cysts, Hx Pelvic Inflammatory Disease. Denies: Hx Peritoneal Dialysis GI Medical History: Reports: Hx Gastritis, Hx Gastroesophageal Reflux Disease Musculoskeltal Medical History: Reports Hx Arthritis Skin Medical History: Reports Hx Eczema Psychiatric Medical History: Reports: Hx Anxiety, Hx Depression Past Surgical History: Reports: Hx Section, Hx Cholecystectomy - March 08, 2012, Hx Gynecologic Surgery - Endoscopy for endometriosis, Hx Orthopedic Surgery - Immunizations Immunizations up to date: Yes Hx Diphtheria, Pertussis, Tetanus Vaccination: Yes History of Influenza Vaccine for 04/2017 - 09/2017 Season: No Physical Exam - Vital signs Vitals: Temp Pulse Resp BP Pulse Ox 97.7 F 100 19 129/82 H 100 10/19/18 09:51 10/19/18 09:51 10/19/18 09:51 10/19/18 09:51 10/19/18 09:51 Course - Vital Signs Vital signs: Temp Pulse Resp BP Pulse Ox 97.7 F 100 19 129/82 H 100 10/19/18 09:51 10/19/18 09:51 10/19/18 09:51 10/19/18 09:51 10/19/18 09:51 Doctor's Discharge - Discharge Referrals: SHIVANI VALERA DO [Primary Care Provider] - Follow up as needed
--- NOTE | 2018-10-19 11:12 | RADIOLOGY REPORT (SQ) ---
EXAM DESCRIPTION: L SPINE WHOLE COMPLETED DATE/TIME: 10/19/2018 11:00 am REASON FOR STUDY: low back pain COMPARISON: 09/23/2007 NUMBER OF VIEWS: Five views including obliques. TECHNIQUE: AP, lateral, oblique, and sacral radiographic images acquired of the lumbar spine. LIMITATIONS: None. FINDINGS: MINERALIZATION: Normal. SEGMENTATION: Normal. No transitional anatomy. ALIGNMENT: Stable mild dextroconvex scoliosis. VERTEBRAE: Maintained height. No fracture or worrisome bone lesion. DISCS: Preserved height. No significant osteophytes or end plate irregularity. POSTERIOR ELEMENTS: Pedicles and facets are intact. No pars defect or posterior arch defects. HARDWARE: None in the spine. PARASPINAL SOFT TISSUES: Normal. PELVIS: Intact as visualized. No fractures or worrisome bone lesions. SI joints intact. OTHER: No other significant finding. IMPRESSION: 1. No significant interval changes since the prior examination dated 09/23/2007. Mild de xtroconvex scoliosis. 2. No acute osseous findings. TECHNICAL DOCUMENTATION: JOB ID: [id number] [employer]- All Rights Reserved Reading location - IP/workstation name: [email or web address]
[2018-10-19] MEDS ORDERED: OXYCODONE-ACETAMINOPHEN 5-325 MG TABLET PO ONE (11:28)
[2018-10-19] MEDS ORDERED: PROMETHAZINE HCL 25 MG TABLET PO ONE (11:28)
[2018-10-19 12:24] LABS: APPEARANCE,URINE SLIGHTLY-CLOUDY; BILIRUBIN,URINE NEGATIVE (NEGATIVE); COLOR,URINE YELLOW; GLUCOSE, URINE NEGATIVE (NEGATIVE); KETONES,URINE NEGATIVE (NEGATIVE); LEUKOCYTE ESTERASE,URINE NEGATIVE (NEGATIVE); NITRITE,URINE NEGATIVE (NEGATIVE); PROTEIN,URINE NEGATIVE (NEGATIVE); UROBILINOGEN,URINE NEGATIVE mg/dL (<2.0)
[2018-10-19 12:39] LABS: URINE AMPHETAMINES SCREEN NEGATIVE; URINE BARBITURATES SCREEN NEGATIVE; URINE BENZODIAZEPINES SCREEN NEGATIVE; URINE COCAINE SCREEN NEGATIVE; URINE MARIJUANA (THC) SCREEN UNCONFIRMED POSITIVE; URINE METHADONE SCREEN NEGATIVE; URINE PHENCYCLIDINE SCREEN NEGATIVE
--- NOTE | 2018-10-19 13:05 | RADIOLOGY REPORT (SQ) ---
EXAM DESCRIPTION: MRI LUMBAR SPINE WITHOUT COMPLETED DATE/TIME: 10/19/2018 12:52 pm REASON FOR STUDY: Sacral/lumbar pain COMPARISON: None. TECHNIQUE: Sagittal and Axial imaging includes T1, T2, STIR and gradient echo sequences. Coronal T2/ HASTE imaging. LIMITATIONS: None. FINDINGS: VISUALIZED UPPER ABDOMEN: Limited evaluation. No acute or suspicious findings suggested. SEGMENTATION: No transitional anatomy. The lowest well-developed disc space is labeled L5-S1. ALIGNMENT: Anatomic. VERTEBRAE: Intact. BONE MARROW: Normal. No marrow replacement or reactive changes. DISC SIGNAL: Normal. No significant abnormal signal or loss of height. POSTERIOR ELEMENTS: Generally intact. No pars defect evident. HARDWARE: None in the spine. CORD AND CONUS: Normal in size and signal intensity. Conus at the appropriate level. SOFT TISSUES: No aortic aneurysm seen. No bulky retroperitoneal adenopathy or mass. No paraspinal mas s or fluid. L1-L2: No significant spinal stenosis or exit foraminal stenosis. L2-L3: No significant spinal stenosis or exit foraminal stenosis. L3-L4: No significant spinal stenosis or exit foraminal stenosis. L4-L5: No significant disc bulge. Small focal area of increased signal in the posterior annulus. No significant spinal stenosis or exit foraminal stenosis. L5-S1: Mild central disc protrusion. Mild increased signal in the central annulus. No significant s ramu stenosis or exit foraminal stenosis. LOWER THORACIC: Incompletely imaged. No stenosis seen. SACRUM: Visualized upper sacrum intact. OTHER: No other significant findings. IMPRESSION: MILD INCREASED SIGNAL IN THE POSTERIOR ANNULUS OF THE L4-L5 AND L5-S1 DISCS, CONSISTENT WITH SMALL ANNULAR FISSURES. THERE IS A SMALL CENTRAL DISC PROTRUSION AT L5-S1. NO STENOSIS OR IMPI NGEMENT. TECHNICAL DOCUMENTATION: JOB ID: [id number] [employer]- All Rights Reserved Reading location - IP/workstation name: [email or web address]
--- NOTE | 2018-10-19 14:04 | ER Document Report ---
ED General - General Chief Complaint: Low Back Pain Stated Complaint: BACK PAIN Time Seen by Provider: 10/19/18 10:10 Primary Care Provider: SHIVANI VALERA DO [Primary Care Provider] - Follow up as needed Notes: Patient says she is having severe pain in her lower lumbar back region down into the region of the sacrum. She relates the onset to having been tripped by her dog and falling down a few steps landing on her butt on the floor. This fall occurred in May. Ever since then she is been having intermittent pains in the back. The last few days it seems to have increased. She says she is unable to lay down on her but because of the pain. She has difficulty standing up straight. Pain radiates from the lumbar back and buttock region down the back of both legs. She is tried [id number] pain medicines with no relief. She says that it so severe at times that she cannot even walk. Has not had any fever. Has not had any loss of use of function in the pelvic region. No loss of control of bladder or bowels. Reviewing patient's visits shows that she has a large number of visits to emergency department over the past 3 years for painful conditions. She is been seen multiple times for toothaches, and other pains such as in her back, etc. TRAVEL OUTSIDE OF THE [place] IN LAST 30 DAYS: No - Related Data Allergies/Adverse Reactions: latex [Latex] Allergy (Intermediate, Verified 10/19/18 09:43) Rash, pelvic infection morphine [Morphine] Adverse Reaction (Verified 10/19/18 09:43) Makes pain worse Past Medical History - Social History Smoking Status: Current Every Day Smoker Frequency of alcohol use: None Drug Abuse: None Family History: Reviewed & Not Pertinent, CAD, COPD, CVA, Hyperlipidemia, Hypertension Patient has suicidal ideation: No Patient has homicidal ideation: No Pulmonary Medical History: Reports: Hx Asthma Neurological Medical History: Reports: Hx Migraine Renal/ Medical History: Reports: Hx Ovarian Cysts, Hx Pelvic Inflammatory Disease GI Medical History: Reports: Hx Gastritis, Hx Gastroesophageal Reflux Disease Musculoskeletal Medical History: Reports Hx Arthritis Skin Medical History: Reports Hx Eczema Psychiatric Medical History: Reports: Hx Anxiety, Hx Depression Past Surgical History: Reports: Hx Section, Hx Cholecystectomy - March 08, 2012, Hx Gynecologic Surgery - Endoscopy for endometriosis, Hx Orthopedic Surgery - Immunizations Immunizations up to date: Yes Hx Diphtheria, Pertussis, Tetanus Vaccination: Yes Review of Systems - Review of Systems Notes: REVIEW OF SYSTEMS: CONSTITUTIONAL : Denies fever. EENT: Denies eye, ear, nose or mouth or throat pain or other symptoms. CARDIOVASCULAR: Denies chest pain. RESPIRATORY: Denies cough, chest congestion, or shortness of breath. GASTROINTESTINAL: Denies abdominal pain or nausea, vomiting, or diarrhea. GENITOURINARY: Denies difficulty or painful urinating, urinary frequency, blood in urine. MUSCULOSKELETAL: See HPI. SKIN: Denies rash or skin lesions. NEUROLOGICAL: Says her back pain radiates down the buttocks of both sides down her legs. Denies any loss of use or sensation in either of the lower extremities. Denies LOC or altered mental status. Denies sensory loss or motor deficits. ALL OTHER SYSTEMS REVIEWED AND NEGATIVE. Physical Exam - Vital signs Vitals: Temp Pulse Resp BP Pulse Ox 97.7 F 100 19 129/82 H 100 10/19/18 09:51 10/19/18 09:51 10/19/18 09:51 10/19/18 09:51 10/19/18 09:51 Interpretation: Normal. No: Febrile Notes: PHYSICAL EXAMINATION: GENERAL: Well-appearing, in no acute distress. Appears comfortable laying on the stretcher, but complains of severe lumbar back pain if she is asked to lay on her back. She stands up slowly and seems to be partly hunched forward. Seems to have difficulty straightening up to normal erect position. HEAD: Atraumatic, normocephalic. EYES: Pupils equal round and reactive to light, extraocular movements intact. ENT: oropharynx clear without exudates. Moist mucous membranes. NECK: Normal range of motion, supple. LUNGS: Breath sounds clear and equal bilaterally. HEART: Regular rate and rhythm without murmurs. ABDOMEN: Soft, nontender. No guarding or rebound. No masses. BACK: Tender throughout the entire lumbar and sacral regions of the back. Pain with elevation of either of the legs, but not what I would consider straight leg raising. Excellent and equal and symmetrical patellar reflexes bilaterally. No clonus. EXTREMITIES: Normal range of motion without pain. Negative Homans. NEUROLOGICAL: Normal speech, normal gait. Normal sensory, motor, and reflex exams. Awake, alert, and oriented x3. Cranial nerves normal. PSYCH: Normal mood, normal affect. SKIN: Warm, dry, no rashes. Course - Re-evaluation Re-evalutation: 10/19/18 19:54 Obtained an MRI showing that the patient has no stenosis or impingement in the lumbar spine. Minor other changes found. - Vital Signs Vital signs: Temp Pulse Resp BP Pulse Ox 98.2 F 61 18 122/70 100 10/19/18 14:05 10/19/18 14:05 10/19/18 14:05 10/19/18 14:05 10/19/18 14:05 Discharge - Discharge Clinical Impression: Lumbar back pain Condition: Stable Disposition: HOME, SELF-CARE Additional Instructions: LOW BACK PAIN: Three out of every four people will have an episode of disabling back pain during their lifetime. Most commonly the pain is due to straining of the muscles and ligaments in the low back. Usual treatment includes: (1) Rest on a firm surface. Avoid lying on your stomach. (2) Ice pack the painful area. After a few days, gentle heat may be used intermittently to relax the area, or ice packs can be continued. (3) Medication may be needed -- muscle relaxers and antiinflammatory medicines are commonly used. (4) As the back improves, exercises are prescribed to strengthen the back and abdominal muscles. Your doctor will advise you on the proper care for your back at each stage in your recovery. You may be better in a few days -- or healing may take several weeks. If new symptoms of a "herniated disc" (radiation of pain, numbness, or tingling down the back of the leg or weakness in the leg) occur, you should be re-examined. Further testing may be necessary. MUSCLE RELAXERS: Muscle relaxing medications are usually prescribed for acute muscle spasm or injury to the neck and back. They are often combined with antiinflammatory pain medication for increased relief. You may stop the muscle relaxer when the pain and stiffness have improved. Start the medication again if spasms recur. Muscle relaxers may cause drowsiness, especially with the first dose. Do not operate machinery or drive while under the effects of the medication. Most muscle relaxers last up to 24 hours. Do not combine the medication with alcohol. USE OF ACETAMINOPHEN (Tylenol): Acetaminophen may be taken for pain relief or fever control. It's much safer than aspirin, offering a wider range of "safe" dosages. It is safe during . Some brand names are Tylenol, Panadol, Datril, Anacin 3, Tempra, and Liquiprin. Acetaminophen can be repeated every four hours. The following are maximum recommended dosages: WEIGHT Dose Drops Elixir Chewable(80mg) (LBS.) drprs=droppers tsp=teaspoon >89 pounds or adults 650 mg to 900 mg Acetaminophen can be repeated every four hours. Maximum dose not to exceed 4000 mg a day. These maximum recommended dosages are slightly higher than the dosages written on the product container, but these dosages are very safe and below the toxic dosage for acetaminophen. Ibuprofen Ibuprofen is an excellent, safe drug for pain control. In addition, it has potent antiinflammatory effects which are beneficial, especially in the treatment of injuries, arthritis, or tendonitis. It's best to take ibuprofen with food. Persons with ulcer disease or allergy to aspirin should notify their physician of this before taking ibuprofen. Take the medication exactly as prescribed. Don't take additional doses unless instructed to do so by your doctor. If you develop wheezing, shortness of breath, hives, faintness, stomach pain, vomiting, or dark black stools, return for re-evaluation at once. FOLLOW-UP CARE: If you have been referred to a physician for follow-up care, call the physicians office for an appointment as you were instructed or within the next two days. If you experience worsening or a significant change in your symptoms, notify the physician immediately or return to the Emergency Department at any time for re-evaluation. Prescriptions: Methocarbamol [Robaxin 500 mg Tablet] 1,000 mg PO QID #50 tablet Forms: Return to Work Referrals: SHIVANI VALERA DO [Primary Care Provider] - Follow up as needed
[2018-10-19 14:07] VITALS: BP 122/70
== END 2018-10-19 14:08 | disposition home or self-care (01) ==
LOC: ER 09:41
DX: M54.5 Low back pain (principal); F17.200 Nicotine dependence, unspecified, uncomplicated; J45.909 Unspecified asthma, uncomplicated
CPT/HCPCS: 99284; 96372; 81025; 81001; 80307; 72148; 72110; J1885

== ENCOUNTER 2020-05-09 09:31 | Emergency (ER) | payer MEDICAID ==
[2020-05-09 09:35] VITALS: BP 139/61
--- NOTE | 2020-05-09 10:52 | ER Document Report ---
HPI - HPI Time Seen by Provider: 05/09/20 10:37 Pain Level: 4 Notes: 24-year-old female patient presenting to the emergency department chief complaint of possible head injury. Patient reports she was bending over to scoop some dog food when a bottle of mustard fell from a shelf above her striking her in the head. She reports it was a plastic bottle and hit her on the right side of her head. She denies any loss of consciousness and has not had any nausea or vomiting. She states she has anxiety about her health so she wanted to be checked out. - ROS Systems Reviewed and Negative: Yes All other systems reviewed and negative - NEURO Neurology: REPORTS: Headache - REPRODUCTIVE Reproductive: DENIES: : Past Medical History - General Information source: Patient - Social History Smoking Status: Current Every Day Smoker Family History: Reviewed & Not Pertinent, CAD, COPD, CVA, Hyperlipidemia, Hypertension Patient has homicidal ideation: No - Past Medical History Cardiac Medical History: Denies: Hx Coronary Artery Disease, Hx Heart Attack, Hx Hypertension Pulmonary Medical History: Reports: Hx Asthma Denies: Hx Bronchitis, Hx COPD, Hx Pneumonia Neurological Medical History: Reports: Hx Migraine. Denies: Hx Cerebrovascular Accident, Hx Seizures Renal/ Medical History: Reports: Hx Ovarian Cysts, Hx Pelvic Inflammatory Disease. Denies: Hx Peritoneal Dialysis GI Medical History: Reports: Hx Gastritis, Hx Gastroesophageal Reflux Disease Musculoskeletal Medical History: Reports Hx Arthritis Skin Medical History: Reports Hx Eczema Psychiatric Medical History: Reports: Hx Anxiety, Hx Depression Past Surgical History: Reports: Hx Section, Hx Cholecystectomy - March 08, 2012, Hx Gynecologic Surgery - Endoscopy for endometriosis, Hx Orthopedic Surgery - Immunizations Immunizations up to date: Yes Hx Diphtheria, Pertussis, Tetanus Vaccination: Yes Vertical Provider Document - CONSTITUTIONAL Notes: PHYSICAL EXAMINATION: GENERAL: Well-appearing, well-nourished and in no acute distress. HEAD: Atraumatic, normocephalic. No palpable abnormality on exam. EYES: Pupils equal round extraocular movements intact, conjunctiva are normal. ENT: Nares patent, no blood in nares, no hemotympanum. NECK: Normal range of motion, no vertebral tenderness, step-off or deformity. LUNGS: No respiratory distress Musculoskeletal: Normal range of motion NEUROLOGICAL: Normal speech, normal gait. PSYCH: Normal mood, normal affect. SKIN: Warm, Dry, normal turgor, no rashes or lesions noted. - INFECTION CONTROL TRAVEL OUTSIDE OF THE [place] IN LAST 30 DAYS: No Course - Re-evaluation Re-evalutation: Presentation of head trauma in an otherwise well-appearing patient. No focal neurologic deficits on exam, no evidence of basilar skull fracture on exam without evidence of hemotympanum, raccoon eyes, or periauricular hematoma. No papilledema. Patient is not on anticoagulation. GCS is 15. No loss of consciousness. No episodes of vomiting. Patient is therefore negative via [place] head CT criteria and CT imaging will not be obtained at this time. - Vital Signs Vital signs: Temp Pulse Resp BP Pulse Ox 98.3 F 85 16 139/61 H 100 05/09/20 09:34 05/09/20 09:34 05/09/20 09:34 05/09/20 09:34 05/09/20 09:34 Discharge - Discharge Clinical Impression: Head trauma Qualifiers: Encounter type: initial encounter Qualified Code(s): S09.90XA - Unspecified injury of head, initial encounter Concussion Qualifiers: Encounter type: initial encounter Loss of consciousness presence/duration: without LOC Qualified Code(s): S06.0X0A - Concussion without loss of consciousness, initial encounter Condition: Stable Disposition: HOME, SELF-CARE Additional Instructions: You have likely sustained a contusion (bruise) to your head. Symptoms to expect from a concussion include nausea, mild to moderate headache, difficulty concentrating or sleeping, and mild lightheadedness. These symptoms should improve over the next few days to weeks. Return to the emergency department or follow-up with your primary care doctor if your symptoms are not improving over this time. Signs of a more serious head injury include vomiting, severe headache, excessive sleepiness or confusion, and weakness or numbness in your face, arms or legs. Return immediately to the Emergency Department if you experience any of these more concerning symptoms. Rest, avoid strenuous physical or mental activity, and avoid activities that could potentially result in another head injury until all your symptoms from this head injury are completely resolved for at least 2-3 weeks. You may take ibuprofen or acetaminophen over the counter according to label instructions for mild headache or scalp soreness. Prescriptions: Ondansetron [Zofran Odt 4 mg Tablet] 1 - 2 tab PO Q4HP PRN #10 tab.rapdis PRN Reason: Forms: Return to Work Referrals: SHIVANI VALERA, [Primary Care Provider] - Follow up as needed
== END 2020-05-09 11:09 | disposition home or self-care (01) ==
LOC: ER 09:31
DX: S06.0X0A Concussion without loss of consciousness, initial encounter (principal); W20.8XXA Other cause of strike by thrown, projected or falling object, initial encounter; Y93.89 Activity, other specified; F17.200 Nicotine dependence, unspecified, uncomplicated; J45.909 Unspecified asthma, uncomplicated
CPT/HCPCS: 99283

== ENCOUNTER 2020-05-12 19:55 | Emergency (ER) | payer MEDICAID ==
--- NOTE | 2020-05-12 20:06 | ER Document Report ---
ED Medical Screen (RME) - General Chief Complaint: Head Injury Stated Complaint: HEAD PRESSURE Time Seen by Provider: 05/12/20 20:00 Primary Care Provider: SHIVANI VALERA DO [Primary Care Provider] - Follow up as needed Mode of Arrival: Ambulatory Information source: Patient Notes: 24-year-old female presented to ED for complaint of headache nausea since Thursday. She states she was down on kneeling down to feed the dog on Thursday when her father bumped the rectum food is 1 and a mustard bottle fell 4 feet above her and landed on her head causing her head injury. She states she has been nauseated and having a headache since then. She does have a history of migraines. She also has a history of anxiety depression. She does have a appointment with her neurologist on the but she cannot stand the headache until then. She states she has quit smoking and now uses vapor cigarettes does not use any alcohol or drugs. She does have a history of migraines anxiety and depression. Patient is alert oriented respirations regular nonlabored at this time. We will get blood and CT of the head neck as she is also having neck pain since Thursday. She states she does have dentures due to all of her teeth breaking and they pulled them all out. I have greeted and performed a rapid initial assessment of this patient. A comprehensive ED assessment and evaluation of the patient, analysis of test results and completion of medical decision making process will be conducted by an additional ED providers. TRAVEL OUTSIDE OF THE [place] IN LAST 30 DAYS: No - Related Data Allergies/Adverse Reactions: latex [Latex] Allergy (Intermediate, Verified 10/19/18 09:43) Rash, pelvic infection morphine [Morphine] Adverse Reaction (Verified 10/19/18 09:43) Makes pain worse Past Medical History - Social History Family history: Hypertension - Past Medical History Cardiac Medical History: Denies: Hx Coronary Artery Disease, Hx Heart Attack, Hx Hypertension Pulmonary Medical History: Reports: Hx Asthma Denies: Hx Bronchitis, Hx COPD, Hx Pneumonia Neurological Medical History: Reports: Hx Migraine. Denies: Hx Cerebrovascular Accident, Hx Seizures Renal/ Medical History: Reports: Hx Ovarian Cysts, Hx Pelvic Inflammatory Disease. Denies: Hx Peritoneal Dialysis GI Medical History: Reports: Hx Gastritis, Hx Gastroesophageal Reflux Disease Musculoskeltal Medical History: Reports Hx Arthritis Skin Medical History: Reports Hx Eczema Psychiatric Medical History: Reports: Hx Anxiety, Hx Depression Past Surgical History: Reports: Hx Section, Hx Cholecystectomy - March 08, 2012, Hx Gynecologic Surgery - Endoscopy for endometriosis, Hx Orthopedic Surgery - Immunizations Immunizations up to date: Yes Hx Diphtheria, Pertussis, Tetanus Vaccination: Yes Physical Exam - Vital signs Vitals: Temp Pulse Resp BP Pulse Ox 98.2 F 77 16 130/77 H 98 05/12/20 20:00 05/12/20 20:00 05/12/20 20:00 05/12/20 20:00 05/12/20 20:00 Course - Vital Signs Vital signs: Temp Pulse Resp BP Pulse Ox 98.2 F 77 16 130/77 H 98 05/12/20 20:00 05/12/20 20:00 05/12/20 20:00 05/12/20 20:00 05/12/20 20:00 Doctor's Discharge - Discharge Referrals: SHIVANI VALERA DO [Primary Care Provider] - Follow up as needed
[2020-05-12 20:49] LABS: ABSOLUTE BASOPHILS # (AUTO) 0.1 10^3/uL (0.0-0.2); ABSOLUTE EOSINOPHILS # (AUTO) 0.3 10^3/uL (0.0-0.6); MEAN CORPUSCULAR HEMOGLOBIN 31.6 pg (27.0-33.4); TOTAL CELLS COUNTED % (AUTO) 100 %
[2020-05-12 21:04] LABS: APPEARANCE,URINE CLEAR; BILIRUBIN,URINE NEGATIVE (NEGATIVE); COLOR,URINE STRAW; GLUCOSE, URINE NEGATIVE (NEGATIVE); KETONES,URINE NEGATIVE (NEGATIVE); LEUKOCYTE ESTERASE,URINE NEGATIVE (NEGATIVE); NITRITE,URINE NEGATIVE (NEGATIVE); PROTEIN,URINE NEGATIVE (NEGATIVE); URINE SPECIFIC GRAVITY 1.002; UROBILINOGEN,URINE NEGATIVE mg/dL (<2.0)
[2020-05-12 21:05] LABS: ALBUMIN 4.6 g/dL (3.5-5.0); ALKALINE PHOSPHATASE 49 U/L (38-126); ANION GAP 10 (5-19); ASPARTATE AMINO TRANSFERASE 20 U/L (14-36); BILIRUBIN,DIRECT 0.3 mg/dL (0.0-0.4); BLOOD UREA NITROGEN 8 mg/dL (7-20); CALCIUM 9.7 mg/dL (8.4-10.2); CARBON DIOXIDE 25 mmol/L (22-30); CHLORIDE 102 mmol/L (98-107); GLUCOSE 98 mg/dL (75-110); POTASSIUM 4.1 mmol/L (3.6-5.0); TOTAL PROTEIN 7.2 g/dL (6.3-8.2)
[2020-05-12 21:11] LABS: ABSOLUTE LYMPHOCYTES (AUTO) 3.1 10^3/uL (0.5-4.7); ABSOLUTE MONOCYTES (AUTO) 0.7 10^3/uL (0.1-1.4); ABSOLUTE NEUT (AUTO) 6.9 10^3/uL (1.7-8.2); BASOPHILS % (AUTO) 0.5 % (0-2); EOSINOPHILS % (AUTO) 2.5 % (0-6); HEMATOCRIT 40.4 % (36.0-47.0); LYMPHOCYTES % (AUTO) 28.1 % (13-45); MEAN CORPUSCULAR HGB CONC 34.7 g/dL (32.0-36.0); MEAN CORPUSCULAR VOLUME 91 fl (80-97); MONOCYTES % (AUTO) 6.3 % (3-13); PLATELET COUNT 180 10^3/uL (150-450); RED BLOOD COUNT 4.44 10^6/uL (3.72-5.28); RED CELL DISTRIBUTION WIDTH 13.1 % (11.5-14.0); SEGMENTED NEUTROPHILS % (AUTO) 62.6 % (42-78)
[2020-05-12 21:28] LABS: URINE AMPHETAMINES SCREEN NEGATIVE; URINE BARBITURATES SCREEN NEGATIVE; URINE BENZODIAZEPINES SCREEN NEGATIVE; URINE METHADONE SCREEN NEGATIVE; URINE PHENCYCLIDINE SCREEN NEGATIVE
[2020-05-12 21:35] LABS: URINE COCAINE SCREEN NEGATIVE
[2020-05-12 21:39] LABS: URINE MARIJUANA (THC) SCREEN UNCONFIRMED POSITIVE
--- NOTE | 2020-05-12 21:58 | RADIOLOGY REPORT (SQ) ---
EXAM DESCRIPTION: CT CERVICAL SPINE WITHOUT IV CONTRAST COMPLETED DATE/TME: 05/12/2020 20:06 CLINICAL HISTORY: 24 years, Female, Pain to head and neck, mustard jar fell on head COMPARISON: None. TECHNIQUE: Noncontrast CT cervical spine was acquired. Coronal and sagittal reformations were created. Images stored on PACS. All CT scanners at this facility use dose modulation, iterative reconstruction, and/or weight based dosing when appropriate to reduce radiation dose to as low as reasonably achievable (ALARA). [facility]: Dose Right [facility]: CareDose [facility]: Dose Right [facility]: Teradose 4D [facility]: [employer] LIMITATIONS: None. FINDINGS: Limited evaluation of the posterior fossa structures reveals no suspicious abnormality. Occipital condyles are normal. Lateral masses of C1 and C2 align properly. Base and tip of the dens are intact. Craniocervical alignment is maintained. Cervical vertebral body heights and alignments are maintained. Intervertebral disc spaces are also well maintained. No acute fracture or malalignment is appreciated. Visualized lung apices are clear. Paravertebral soft tissues show no suspicious abnormality. IMPRESSION: No acute fracture or malalignment. TECHNICAL DOCUMENTATION: Quality ID # [id number]: Final reports with documentation of one or more dose reduction techniques (e.g., Automated exposure control, adjustment of the mA and/or kV according to patient size, use of iterative reconstruction technique) copyright 2011 [employer]- All Rights Reserved
--- NOTE | 2020-05-12 22:01 | RADIOLOGY REPORT (SQ) ---
EXAM DESCRIPTION: CT head without IV contrast CLINICAL HISTORY: 24 years Female Pain to head and neck, jeannette dutton fell on head TECHNIQUE: Noncontrast CT head. All CT scans at this facility use dose modulation, iterative reconstruction, and/or weight based dosing when appropriate to reduce radiation dose to as low as reasonably achievable. COMPARISON: None. FINDINGS: Lane matter, white matter, ventricles, and cisterns are within normal limits. No acute hemorrhage or mass effect. Visualized portions of paranasal sinuses and mastoids are clear. Visualized portions of the calvarium are within normal limits. IMPRESSION: 1. No acute intracranial findings.
[2020-05-12] MEDS ORDERED: METOCLOPRAMIDE HCL INJ/PF 10 MG/2 ML SDV IV ONE (23:20)
[2020-05-12] MEDS ORDERED: KETOROLAC TROMETHAMINE INJ/PF 30 MG/1 ML SDV IV ONE (23:20)
[2020-05-12] MEDS ORDERED: NORMAL SALINE 1000 ML 1,000 ML IV ONE (23:23)
--- NOTE | 2020-05-13 00:51 | ER Document Report ---
ED General - General Chief Complaint: Headache Stated Complaint: HEAD PRESSURE Time Seen by Provider: 05/12/20 20:00 Primary Care Provider: SHIVANI VALERA DO [Primary Care Provider] - Follow up as needed Mode of Arrival: Ambulatory Notes: 24-year-old female history of migraines presents with approximately 1 week of headache that feels like "a band wrapped around my head with pressure"that has been waxing waning over the past week and worsened after a bottle of mustard fell and hit her head. Patient says a headache came on gradually and was worse after few days, has been suffering from similar headaches intermittently over the past several years. Has neurology follow-up scheduled. Patient had no LOC when muscle ball hit her head, has had no vomiting. Patient denies any bleeding diatheses, anticoagulation, neck pain or stiffness, fever, change in vision/speech/gait, weakness or numbness, vertigo, memory loss TRAVEL OUTSIDE OF THE [place] IN LAST 30 DAYS: No - Related Data Allergies/Adverse Reactions: latex [Latex] Allergy (Intermediate, Verified 10/19/18 09:43) Rash, pelvic infection morphine [Morphine] Adverse Reaction (Verified 10/19/18 09:43) Makes pain worse Past Medical History - General Information source: Patient - Social History Smoking Status: Former Smoker Frequency of alcohol use: Rare Drug Abuse: None Family History: Reviewed & Not Pertinent, CAD, COPD, CVA, Hyperlipidemia, Hypertension - Past Medical History Cardiac Medical History: Denies: Hx Coronary Artery Disease, Hx Heart Attack, Hx Hypertension Pulmonary Medical History: Reports: Hx Asthma Denies: Hx Bronchitis, Hx COPD, Hx Pneumonia Neurological Medical History: Reports: Hx Migraine. Denies: Hx Cerebrovascular Accident, Hx Seizures Renal/ Medical History: Reports: Hx Ovarian Cysts, Hx Pelvic Inflammatory Disease. Denies: Hx Peritoneal Dialysis GI Medical History: Reports: Hx Gastritis, Hx Gastroesophageal Reflux Disease Musculoskeletal Medical History: Reports Hx Arthritis Skin Medical History: Reports Hx Eczema Psychiatric Medical History: Reports: Hx Anxiety, Hx Depression Past Surgical History: Reports: Hx Section, Hx Cholecystectomy - March 08, 2012, Hx Gynecologic Surgery - Endoscopy for endometriosis, Hx Orthopedic Surgery - Immunizations Immunizations up to date: Yes Hx Diphtheria, Pertussis, Tetanus Vaccination: Yes Review of Systems - Review of Systems Notes: REVIEW OF SYSTEMS: CONSTITUTIONAL : Denies fever, chills, or sweats. EENT: Denies recent cold/sinus symptoms, denies throat pain CARDIOVASCULAR: Denies chest pain, LES RESPIRATORY: Denies cough, denies shortness of breath. GASTROINTESTINAL: Denies abdominal pain, nausea/vomiting. GENITOURINARY: Denies difficulty urinating, painful urination. FEMALE GENITOURINARY: Denies abnormal vaginal bleeding, vaginal discharge. MUSCULOSKELETAL: Denies neck pain, back pain. SKIN: Denies rash or skin lesions. HEMATOLOGIC : Denies easy bruising or bleeding. LYMPHATIC: Denies swollen, enlarged glands. NEUROLOGICAL: + headache, denies change in gait. PSYCHIATRIC: + anxiety -si/hi Physical Exam - Vital signs Vitals: Temp Pulse Resp BP Pulse Ox 98.2 F 77 16 130/77 H 98 05/12/20 20:00 05/12/20 20:00 05/12/20 20:00 05/12/20 20:00 05/12/20 20:00 - Notes Notes: PHYSICAL EXAMINATION: GENERAL: Well-appearing, well-nourished and in no acute distress. HEAD: Atraumatic, normocephalic. EYES: Pupils equal round and appropriate constriction, sclera anicteric, conjunctiva are normal. ENT: nares patent, moist mucous membranes, no sinus tenderness NECK: Normal range of motion, supple without lymphadenopathy, no midline cervical spine tenderness LUNGS: Breath sounds clear to auscultation bilaterally and equal. No wheezes ra les or rhonchi. HEART: Regular rate and rhythm without murmurs ABDOMEN: Soft, nontender, no guarding, no masses, no CVAT EXTREMITIES: Normal range of motion, no pitting or edema. No cyanosis. NEUROLOGICAL: Awake, alert, conversing appropriately, moves all extremities spontaneously, normal [id number] bilaterally, normal cranial nerves II through XII bilaterally, 5+ strength in all extremities, normal sensation in all extremities PSYCH: Normal mood, normal affect. SKIN: Warm, Dry, normal turgor, no rashes or lesions noted. Course - Re-evaluation Re-evalutation: 05/13/20 00:48 Gradual onset headache consistent with likely tension headache without any red flags on history, no neuro symptoms, normal neuro exam. Given that patient had trauma was CT was ordered in triage which showed no acute abnormalities. P atient felt relieved that CT was normal and felt I had the improved with this news. Gave fluids and analgesia and patient now feels greatly improved. Patient has neurology follow-up scheduled and I stressed the importance of this so she can find new treatment modalities and further investigate her headache. I gave patient extensive return to ED precautions which she demonstrated understanding of. Patient ready for discharge, give copy of all results that she can bring to neurology appointment. Possibly mild concussion and gave patient concussion precautions but most likely not related to trauma symptoms started beforehand. Borderline leukocytosis without any shift and within the infectious symptoms not clinically significant, instructed patient to follow this up with her primary doctor. - Vital Signs Vital signs: Temp Pulse Resp BP Pulse Ox 98.2 F 77 16 130/77 H 98 05/12/20 20:00 05/12/20 20:00 05/12/20 20:00 05/12/20 20:00 05/12/20 20:00 - Laboratory Result Diagrams: 05/12/20 20:34 05/12/20 20:34 Laboratory results interpreted by me: 05/12/20 05/12/20 20:34 20:34 WBC 11.0 H Sodium 136.6 L Discharge - Discharge Clinical Impression: Headache Qualifiers: Headache type: unspecified Headache chronicity pattern: unspecified pattern Intractability: not intractable Qualified Code(s): R51.9 - Headache, unspecified Head injury Qualifiers: Encounter type: initial encounter Qualified Code(s): S09.90XA - Unspecified injury of head, initial encounter Disposition: HOME, SELF-CARE Additional Instructions: Headache Most headaches are due to emotional stress, with resultant muscle tension (tension headache). Occasionally, headaches are secondary to changes in the blood vessels of the scalp (vascular headache and migraine headache). Sometimes, a headache is the first symptom of another developing illness, such as a viral infection. You have no evidence of stroke, bleeding, meningitis, or other serious cause of your headache, but it is important they follow-up with your neurologist as scheduled for further investigate this problem. problem. The treatment of headaches varies with the severity and cause of the pain. Not all headaches need pain shots. In fact, there is evidence that using narcotics for headaches may make them worse in the long run. The physician will determine the therapy that's in your best interest. If you develop a fever, if the headache is different from any you've previously experienced, you have change in vision, high speed, how you well, or how you talk, or any other worsening or alarming symptoms return to the emergency department immediately. Your white blood cells were slightly high during this visit, follow this up with your primary doctor to make sure it is normal once you feel better. Referrals: SHIVANI VALERA, [Primary Care Provider] - Follow up in 1 week
[2020-05-13 01:27] VITALS: BP 118/69
== END 2020-05-13 01:27 | disposition home or self-care (01) ==
LOC: ER 19:55
DX: S09.90XA Unspecified injury of head, initial encounter (principal); W20.8XXA Other cause of strike by thrown, projected or falling object, initial encounter; Y93.89 Activity, other specified; R51.9 Headache, unspecified; F41.9 Anxiety disorder, unspecified; J45.909 Unspecified asthma, uncomplicated; Z87.891 Personal history of nicotine dependence; Z86.69 Personal history of other diseases of the nervous system and sense organs; Z91.040 Latex allergy status
CPT/HCPCS: 99285; 96361; 96374; 96375; 36415; 83690; 84703; 85025; 80053; 81001; 80307; 70450; 72125; J1885; J2765; J7030

== ENCOUNTER 2020-06-02 11:37 | Emergency (ER) | payer MEDICAID ==
--- NOTE | 2020-06-02 12:56 | ER Document Report ---
ED Medical Screen (RME) - General Chief Complaint: Chest Pain Stated Complaint: ANXIETY AND CHEST PAIN Time Seen by Provider: 06/02/20 12:52 Primary Care Provider: SHIVANI VALERA DO [Primary Care Provider] - Follow up as needed Mode of Arrival: Ambulatory Information source: Patient Notes: 24-year-old female presents to ED for complaint of chest pain on the right side to the right back with the right axilla. She is already had her gallbladder removed. She states the pain started yesterday. She states she did go to a mental health worker and did get on anxiety medicines. She states she does not know if is the result of her new medications. She states she tried several times to call her mental health provider and have not been able to get a hold of them. I will do the chest pain protocol for now and asked mental health to speak with the patient. Patient is alert oriented respirations regular nonlabored at this time. I have greeted and performed a rapid initial assessment of this patient. A comprehensive ED assessment and evaluation of the patient, analysis of test results and completion of medical decision making process will be conducted by an additional ED providers. TRAVEL OUTSIDE OF THE [place] IN LAST 30 DAYS: No - Related Data Allergies/Adverse Reactions: latex [Latex] Allergy (Intermediate, Verified 10/19/18 09:43) Rash, pelvic infection morphine [Morphine] Adverse Reaction (Verified 10/19/18 09:43) Makes pain worse Past Medical History - Social History Frequency of alcohol use: None Drug Abuse: None Family history: Hypertension - Past Medical History Cardiac Medical History: Denies: Hx Coronary Artery Disease, Hx Heart Attack, Hx Hypertension Pulmonary Medical History: Reports: Hx Asthma Denies: Hx Bronchitis, Hx COPD, Hx Pneumonia Neurological Medical History: Reports: Hx Migraine. Denies: Hx Cerebrovascular Accident, Hx Seizures Renal/ Medical History: Reports: Hx Ovarian Cysts, Hx Pelvic Inflammatory Disease. Denies: Hx Peritoneal Dialysis GI Medical History: Reports: Hx Gastritis, Hx Gastroesophageal Reflux Disease Musculoskeltal Medical History: Reports Hx Arthritis Skin Medical History: Reports Hx Eczema Psychiatric Medical History: Reports: Hx Anxiety, Hx Depression Past Surgical History: Reports: Hx Section, Hx Cholecystectomy - March 08, 2012, Hx Gynecologic Surgery - Endoscopy for endometriosis, Hx Orthopedic Surgery - Immunizations Immunizations up to date: Yes Hx Diphtheria, Pertussis, Tetanus Vaccination: Yes Physical Exam - Vital signs Vitals: Temp Pulse Resp BP Pulse Ox 98.5 F 74 16 129/81 H 100 06/02/20 12:48 06/02/20 12:48 06/02/20 12:48 06/02/20 12:48 06/02/20 12:48 Course - Vital Signs Vital signs: Temp Pulse Resp BP Pulse Ox 98.5 F 74 16 129/81 H 100 06/02/20 12:48 06/02/20 12:48 06/02/20 12:48 06/02/20 12:48 06/02/20 12:48 Doctor's Discharge - Discharge Referrals: SHIVANI VALERA DO [Primary Care Provider] - Follow up as needed
--- NOTE | 2020-06-02 13:36 | RADIOLOGY REPORT (SQ) ---
EXAM DESCRIPTION: CHEST 2 VIEWS IMAGES COMPLETED DATE/TIME: 06/02/2020 12:13 pm REASON FOR STUDY: Chest pain COMPARISON: 12/21/2014 EXAM PARAMETERS: NUMBER OF VIEWS: two views TECHNIQUE: Digital Frontal and Lateral radiographic views of the chest acquired. RADIATION DOSE: NA LIMITATIONS: none FINDINGS: LUNGS AND PLEURA: No opacities, masses or pneumothorax. No pleural effusion. MEDIASTINUM AND HILAR STRUCTURES: No masses or contour abnormalities. HEART AND VASCULAR STRUCTURES: Heart normal size. No evidence for failure. BONES: No acute findings. HARDWARE: None in the chest. OTHER: No other significant finding. IMPRESSION: NO ACUTE RADIOGRAPHIC FINDING IN THE CHEST. TECHNICAL DOCUMENTATION: JOB ID: [id number] 2010 [employer]- All Rights Reserved Reading location - IP/workstation name: [email or web address]
[2020-06-02 14:15] LABS: ABSOLUTE BASOPHILS # (AUTO) 0.1 10^3/uL (0.0-0.2); ABSOLUTE EOSINOPHILS # (AUTO) 0.1 10^3/uL (0.0-0.6); ABSOLUTE LYMPHOCYTES (AUTO) 2.3 10^3/uL (0.5-4.7); ABSOLUTE MONOCYTES (AUTO) 0.6 10^3/uL (0.1-1.4); ABSOLUTE NEUT (AUTO) 6.9 10^3/uL (1.7-8.2); BASOPHILS % (AUTO) 0.5 % (0-2); EOSINOPHILS % (AUTO) 0.5 % (0-6); HEMATOCRIT 44.8 % (36.0-47.0); HEMOGLOBIN 15.4 g/dL (12.0-15.5); MEAN CORPUSCULAR HEMOGLOBIN 30.9 pg (27.0-33.4); MEAN CORPUSCULAR HGB CONC 34.3 g/dL (32.0-36.0); MEAN CORPUSCULAR VOLUME 90 fl (80-97); MONOCYTES % (AUTO) 6.4 % (3-13); PLATELET COUNT 232 10^3/uL (150-450); RED BLOOD COUNT 4.98 10^6/uL (3.72-5.28); RED CELL DISTRIBUTION WIDTH 13.1 % (11.5-14.0); SEGMENTED NEUTROPHILS % (AUTO) 69.6 % (42-78); TOTAL CELLS COUNTED % (AUTO) 100 %
--- NOTE | 2020-06-02 14:16 | ER Document Report ---
ED General - General Chief Complaint: Chest Pain Stated Complaint: ANXIETY AND CHEST PAIN Time Seen by Provider: 06/02/20 12:52 Primary Care Provider: ISIS CASSIDY MD [ACTIVE STAFF] - Follow up as needed SHIVANI VALERA DO [Primary Care Provider] - Follow up as needed Mode of Arrival: Ambulatory TRAVEL OUTSIDE OF THE [place] IN LAST 30 DAYS: No - HPI Notes: 24-year-old presents to the emergency room today for evaluation of chest pain that started yesterday afternoon. Patient states it feels like an electrical shock and it comes in waves, states it goes down both of her arms. Denies any shortness of breath. Denies any trauma. Denies any prior history of any cardiac issues. Start anxiety medication from [facility] within the last 2 weeks. Denies any homicidal suicidal ideations. Denies fevers, chills, palpitations, shortness of breath, dyspnea, nausea, vomiting, diarrhea, abdominal pain, hematuria,blurred vision, double vision, loss of vision, speech changes, LH, dizziness, syncope, headaches, wheezing, ST, URI, neck pain, weakness, bowel or bladder dysfunction, saddle anesthesia, numbness or tingling in bilateral upper or lower extremities equally, muscle paralysis, weakness in bilateral upper or lower extremities equally or rash. Denies IV drug use. - Related Data Allergies/Adverse Reactions: latex [Latex] Allergy (Intermediate, Verified 10/19/18 09:43) Rash, pelvic infection morphine [Morphine] Adverse Reaction (Verified 10/19/18 09:43) Makes pain worse Past Medical History - General Information source: Patient - Social History Smoking Status: Current Every Day Smoker Frequency of alcohol use: None Drug Abuse: None Family History: Reviewed & Not Pertinent, CAD, COPD, CVA, Hyperlipidemia, Hypertension - Past Medical History Cardiac Medical History: Denies: Hx Coronary Artery Disease, Hx Heart Attack, Hx Hypertension Pulmonary Medical History: Reports: Hx Asthma Denies: Hx Bronchitis, Hx COPD, Hx Pneumonia Neurological Medical History: Reports: Hx Migraine. Denies: Hx Cerebrovascular Accident, Hx Seizures Renal/ Medical History: Reports: Hx Ovarian Cysts, Hx Pelvic Inflammatory Disease. Denies: Hx Peritoneal Dialysis GI Medical History: Reports: Hx Gastritis, Hx Gastroesophageal Reflux Disease Musculoskeletal Medical History: Reports Hx Arthritis Skin Medical History: Reports Hx Eczema Psychiatric Medical History: Reports: Hx Anxiety, Hx Depression Past Surgical History: Reports: Hx Section, Hx Cholecystectomy - March 08, 2012, Hx Gynecologic Surgery - Endoscopy for endometriosis, Hx Orthopedic Surgery - Immunizations Immunizations up to date: Yes Hx Diphtheria, Pertussis, Tetanus Vaccination: Yes Review of Systems - Review of Systems Constitutional: No symptoms reported EENT: No symptoms reported Cardiovascular: See HPI Respiratory: No symptoms reported Gastrointestinal: No symptoms reported Genitourinary: No symptoms reported Female Genitourinary: No symptoms reported Musculoskeletal: No symptoms reported Skin: No symptoms reported Hematologic/Lymphatic: No symptoms reported Neurological/Psychological: Anxiety Physical Exam - Vital signs Vitals: Temp Pulse Resp BP Pulse Ox 98.5 F 74 16 129/81 H 100 06/02/20 12:48 06/02/20 12:48 06/02/20 12:48 06/02/20 12:48 06/02/20 12:48 - Notes Notes: MEDICATIONS: I agree with the patient medications as charted by the RN. ALLERGIES: I agree with the allergies as charted by the RN. PAST MEDICAL HISTORY/PAST SURGICAL HISTORY: Reviewed and agree as charted by RN. SOCIAL HISTORY: Reviewed and agree as charted by RN. FAMILY HISTORY: No significant familial comorbid conditions directly related to patient complaint EXAM: Reviewed vital signs as charted by RN. PHYSICAL EXAMINATION: reviewed vital signs by RN GENERAL: Well-appearing, well-nourished and in no acute distress. HEAD: Atraumatic, normocephalic. EYES: Pupils equal round and reactive to light, extraocular movements intact, conjunctiva are normal. ENT: Nares patent, oropharynx clear without exudates. Moist mucous membranes. NECK: Normal range of motion, supple without lymphadenopathy LUNGS: Breath sounds clear to auscultation bilaterally and equal. No wheezes rales or rhonchi. HEART: Regular rate and rhythm without murmurs ABDOMEN: Soft, nontender, nondistended abdomen. No guarding, no rebound. No masses appreciated. Female : deferred Musculoskeletal: Normal range of motion, no pitting or edema. No cyanosis. NEUROLOGICAL: Cranial nerves grossly intact. Normal speech, normal gait. Normal sensory, motor exams PSYCH: Patient appears anxious SKIN: Warm, Dry, normal turgor, no rashes or lesions noted. Course - Re-evaluation Re-evalutation: 06/02/20 16:42 Afebrile vital stable no distress. Nurses notes reviewed. In triage, the nurse practitioner spoke with the mental health team to see if they could do a consult for patient regarding her anxiety. After mental health consult with patient they stated that her anxiety medications have not built up in her system enough, they did advise to give her Vistaril 25 mg every 6 hours as needed. She does have a follow-up appointment with GRAZYNA Schmidt, her mental health provider in 4 days, as well as with her primary care provider. Patient states that her chest pain feels very similar to her anxiety. CBC negative for leukocytosis or anemia, CMP negative for hepatic or renal dysfunction, no electrolyte disturbances. EKG unremarkable, chest x-ray unremarkable. Troponin negative. Discussed will add Vistaril. Patient feels that she is okay to go home, does not feel like she needs any further evaluation. after performing a Medical Screening Examination, I estimate there is LOW risk for RUPTURED ESOPHAGUS, PNEUMOTHORAX, PULMONARY EMBOLISM, ACUTE CORONARY SYNDROME, OR THORACIC AORTIC DISSECTION, thus I consider the discharge disposition reasonable. I have reevaluated this patient multiple times and no significant life threatening changes are noted. The patient and I have discussed the diagnosis and risks, and we agree with discharging home with close follow-up. We also discussed returning to the Emergency Department immediately if new or worsening symptoms occur. We have discussed the symptoms which are most concerning (e.g., bloody sputum, worsening pain or shortness of breath) that necessitate immediate return. - Vital Signs Vital signs: Temp Pulse Resp BP Pulse Ox 98.5 F 82 16 135/86 H 100 06/02/20 15:37 06/02/20 15:37 06/02/20 15:37 06/02/20 15:37 06/02/20 15:37 - Laboratory Result Diagrams: 06/02/20 14:00 06/02/20 14:00 Laboratory results interpreted by me: 06/02/20 06/02/20 14:00 14:00 Sodium 136.9 L Urine Ascorbic Acid 20 H - Diagnostic Test Radiology reviewed: Image reviewed, Reports reviewed Radiology results interpreted by me: 06/02/20 17:26 06/02/20 14:00 06/02/20 14:00 MCV 90 fl (80-97) 06/02/20 14:00 MCH 30.9 pg (27.0-33.4) 06/02/20 14:00 MCHC 34.3 g/dL (32.0-36.0) 06/02/20 14:00 RDW 13.1 % (11.5-14.0) 06/02/20 14:00 Seg Neutrophils % 69.6 % (42-78) 06/02/20 14:00 Chloride 101 mmol/L (98-107) 06/02/20 14:00 Carbon Dioxide 24 mmol/L (22-30) 06/02/20 14:00 Anion Gap 12 (5-19) 06/02/20 14:00 Est GFR ( Amer) > 60 (>60) 06/02/20 14:00 Glucose 93 mg/dL (75-110) 06/02/20 14:00 Calcium 9.8 mg/dL (8.4-10.2) 06/02/20 14:00 Magnesium 2.2 mg/dL (1.6-2.3) 06/02/20 14:00 Total Bilirubin 0.8 mg/dL (0.2-1.3) 06/02/20 14:00 AST 27 U/L (14-36) 06/02/20 14:00 Alkaline Phosphatase 63 U/L (38-126) 06/02/20 14:00 Total Protein 7.8 g/dL (6.3-8.2) 06/02/20 14:00 Albumin 4.9 g/dL (3.5-5.0) 06/02/20 14:00 Lipase 40.8 U/L (23-300) 06/02/20 14:00 Serum HCG, Qual NEGATIVE (NEGATIVE) 06/02/20 14:00 Urine Color YELLOW 06/02/20 14:00 Urine Appearance CLEAR 06/02/20 14:00 Urine pH 7.0 (5.0-9.0) 06/02/20 14:00 Ur Specific [place] 1.018 06/02/20 14:00 Urine Protein NEGATIVE mg/dL (NEGATIVE) 06/02/20 14:00 Urine Glucose (UA) NEGATIVE mg/dL (NEGATIVE) 06/02/20 14:00 Urine Ketones NEGATIVE mg/dL (NEGATIVE) 06/02/20 14:00 Urine Blood NEGATIVE (NEGATIVE) 06/02/20 14:00 Urine Nitrite NEGATIVE (NEGATIVE) 06/02/20 14:00 Ur Leukocyte Esterase NEGATIVE (NEGATIVE) 06/02/20 14:00 Urine WBC (Auto) 2 /HPF 06/02/20 14:00 Urine RBC (Auto) 0 /HPF 06/02/20 14:00 06/02/20 14:00 Troponin I < 0.012 - EKG Interpretation by Me EKG shows normal: Sinus rhythm Rate: Normal Rhythm: NSR Additional EKG results interpreted by me: 06/02/20 15:48 Heart rate 83, P axis 0, QRS 75, T axis 40. Interpreted by ER supervising physician, no STEMI, no ST segment elevations Discharge - Discharge Clinical Impression: Anxiety Chest pain Qualifiers: Chest pain type: unspecified Qualified Code(s): R07.9 - Chest pain, unspecified Condition: Stable Disposition: HOME, SELF-CARE Instructions: Chest Pain of Unclear Cause ([facility]) Additional Instructions: All of your lab work today was normal. Your EKG was normal as well as your chest x-ray. Is advised that you start Vistaril twice daily as needed for your anxiety. Please continue medications as directed and go to your appointments as already scheduled this upcoming Thursday with your primary care, neurologist and [facility]. Return immediately for any new or worsening symptoms. Follow up with primary care provider, call tomorrow to make followup appointment. Prescriptions: Hydroxyzine Pamoate [Vistaril] 25 mg PO Q6HP PRN #15 capsule PRN Reason: Referrals: SHIVANI VALERA DO [Primary Care Provider] - Follow up as needed ISIS CASSIDY MD [ACTIVE STAFF] - Follow up as needed
[2020-06-02 14:18] LABS: APPEARANCE,URINE CLEAR; BILIRUBIN,URINE NEGATIVE (NEGATIVE); COLOR,URINE YELLOW; GLUCOSE, URINE NEGATIVE (NEGATIVE); KETONES,URINE NEGATIVE (NEGATIVE); LEUKOCYTE ESTERASE,URINE NEGATIVE (NEGATIVE); NITRITE,URINE NEGATIVE (NEGATIVE); PROTEIN,URINE NEGATIVE (NEGATIVE); URINE SPECIFIC GRAVITY 1.018; UROBILINOGEN,URINE NEGATIVE mg/dL (<2.0)
[2020-06-02 14:32] LABS: ALBUMIN 4.9 g/dL (3.5-5.0); ALKALINE PHOSPHATASE 63 U/L (38-126); ANION GAP 12 (5-19); ASPARTATE AMINO TRANSFERASE 27 U/L (14-36); BILIRUBIN,DIRECT 0.1 mg/dL (0.0-0.4); BILIRUBIN,TOTAL 0.8 mg/dL (0.2-1.3); BLOOD UREA NITROGEN 7 mg/dL (7-20); CALCIUM 9.8 mg/dL (8.4-10.2); CARBON DIOXIDE 24 mmol/L (22-30); CHLORIDE 101 mmol/L (98-107); GLUCOSE 93 mg/dL (75-110); POTASSIUM 4.8 mmol/L (3.6-5.0); TOTAL PROTEIN 7.8 g/dL (6.3-8.2)
[2020-06-02 16:21] VITALS: BP 135/86
--- NOTE | 2020-06-03 09:05 | EKG REPORT ---
SEVERITY:- OTHERWISE NORMAL ECG - SINUS RHYTHM : Confirmed by: Tram Sung 03-Jun-2020 09:04:48
== END 2020-06-02 15:37 | disposition home or self-care (01) ==
LOC: ER 11:37
DX: R07.9 Chest pain, unspecified (principal); F41.9 Anxiety disorder, unspecified; Z79.899 Other long term (current) drug therapy; Z88.8 Allergy status to other drugs, medicaments and biological substances
CPT/HCPCS: 36415; 71046; 80053; 81001; 83690; 83735; 84484; 84703; 85025; 93005; 93010; 96361; 96374; 99284